=== PATIENT | female | born 1960 | race Caucasian/White ===

== ENCOUNTER 2020-01-23 15:02 | Inpatient (IN) | payer MEDICARE, MEDICAID ==
[2020-01-23 22:25] VITALS: BP 119/74
--- NOTE | 2020-01-24 06:48 | Psychiatric Evaluation ---
DATE OF SERVICE: PSYCHIATRIC INITIAL EVALUATION AND MENTAL STATUS EXAMINATION AGE: 59. SEX: Female. PHYSICIAN: Dr. Hollins CHIEF COMPLAINT: "They picked me up from the beach." HISTORY OF PRESENT ILLNESS: The patient is a 59-year-old female who was admitted to the hospital because of increased aggressive behavior and tried to hit staff according to the admission report. The patient has history of schizophrenia. The patient said that she never hit anybody and that she does not hit people. The patient added that she falls by herself and that is when they came and picked her up and she was sitting on a beach. She seems to be slightly confused, but calm. The patient said that she was never aggressive and she always stays by herself. She is saying that she lives alone in the city [facility]. The patient also is currently calm and staff reports that since she came to the hospital, she was calm. The patient has been taking Seroquel and Haldol as well as Ativan. PAST PSYCHIATRIC HISTORY: The patient has history of schizophrenia with multiple psychiatric hospitalizations. PAST MEDICAL HISTORY: The patient has history of epilepsy. FAMILY PSYCHIATRIC AND CHEMICAL DEPENDENCY HISTORY: The patient denies. CHEMICAL DEPENDENCY HISTORY: For the patient, the patient denies. SOCIAL HISTORY: The patient is single, never and has no children. She lives in [facility]. She denies any alcohol or drug use. She denies any legal issues. She denies any abuse issues. PAIN ASSESSMENT: The patient denies. WORK HISTORY: The patient said that she never worked. ALLERGIES: No known allergies. MENTAL STATUS EXAMINATION: The patient appears her stated age. Anxious. Cooperative. Thought processes are mainly goal directed. The patient seems to be delusional and responding at times. The patient also is paranoid. She denies any auditory or visual hallucinations. She denies any thoughts of suicide or homicide. The patient is alert and oriented to time and that she is in a hospital, but she did not know the name of the hospital and the situation that I am her doctor trying to evaluate her. Intact immediate memory and she remembered the events happened prior to her admission. Intact recent memory and she remembered the events happened 2 weeks ago. Intact remote memory and she remembered her date. Poor insight and she does not know why she is in the hospital. Poor judgment and she was trying to hit staff in the facility. Seems to be of average intelligence based on her verbal ability. Poor attention and concentration span. ASSESSMENT: PRIMARY DIAGNOSIS: Schizophrenic disorder, unspecified. MEDICAL DIAGNOSIS: Epilepsy. TREATMENT PLAN: We will monitor the patient's behavior and condition closely. The patient is taking 2 antipsychotic medications. We will discontinue Haldol. Also, we will continue Seroquel and we will increase the dose to 75 mg twice a day and 300 mg at bedtime. Also, continue Ativan on a p.r.n. basis. ESTIMATED LENGTH OF STAY: 5-7 days. PATIENT'S STRENGTHS AND WEAKNESSES: The patient seems to be in relatively fair health and she is currently cooperative with her treatment. Weaknesses is her impulse control and her paranoia. AFTER DISCHARGE PLAN: The patient will return to [facility] and outpatient treatment and followup will continue there. CRITERIA FOR DISCHARGE: The patient will not be agitated and will stabilize psychotropic medications and will establish outpatient treatment plans. JOB# [id number]
--- NOTE | 2020-01-24 10:58 | History & Physical ---
ADMIT DATE: HISTORY OF PRESENT ILLNESS: The patient is a 59-year-old female with long history of hypertension, hyperlipidemia, degenerative joint disease, dementia, admitted to [facility] under Dr. Hollins's service for evaluation and treatment. The patient denies chest pain, shortness of breath, nausea, vomiting, fever or chills. PAST MEDICAL HISTORY: Significant for hypertension, hyperlipidemia, degenerative joint disease, dementia, and mild psychosis. PAST SURGICAL HISTORY: No recent surgery. ALLERGIES: CHLORAL HYDRATE, CODEINE, PENICILLIN. SOCIAL HISTORY: Chronic smoker. No alcohol or drugs. FAMILY HISTORY: Noncontributory. MEDICATIONS: She is on Tenormin 50 mg daily, Lipitor 10 mg daily, Cogentin 1 mg daily, Colace 250 daily, and Motrin 400 mg q.6 hours for joint pain. FAMILY HISTORY: Noncontributory. REVIEW OF SYSTEMS: RENAL SYSTEM: No history of chronic renal disorder. CARDIOVASCULAR SYSTEM: She has history of essential hypertension. ENDOCRINE SYSTEM: No diabetes or thyroid problem. GASTROINTESTINAL SYSTEM: No upper or lower gastrointestinal bleed. NEUROLOGICAL SYSTEM: Seizure disorder. SKELETOMUSCULAR SYSTEM: No muscular dystrophy. She has degenerative joint disease. HEMATOLOGICAL SYSTEM: No bleeding tendencies. RESPIRATORY SYSTEM: She is a chronic smoker. GENITOURINARY: No dysuria or hematuria. PHYSICAL EXAMINATION: GENERAL: She is awake, alert, mildly confused. VITAL SIGNS: Temperature is 97.4, heart rate 64, and blood pressure 117/64. HEENT: Pupils are reacting, equal to light and accommodation. Sclerae clear. NECK: Supple. Negative for lymphadenopathy, JVD or bruit. CHEST: Air bilaterally normal. No rales, rhonchi or wheezing. HEART: S1 and S2 normal. No gallop rhythm. ABDOMEN: Soft, bowel sounds positive. EXTREMITIES: No edema. BACK: Normal vertebra. BREAST: Done by primary physician, no complaint. GENITAL: Done by primary physician, no complaint. RECTAL: Done by primary physician, no complaint. NEUROLOGIC: She is awake, alert, mildly confused. Cranial nerve #1, the patient is not able to perform the test. Cranial nerve #2, the patient is able to read printed page. Cranial nerve #3, the patient is able to move eyeball upward and outward. Cranial nerve #4: The patient is able to move eyeball inward and downward. Cranial nerve #5: The patient able to clench teeth, has normal sensation to forehead. Cranial nerve #6: The patient is able to move eyeball lateral on both sides. Cranial nerve #7: The patient is able to move eyebrow upwards on both sides. Cranial nerve #8: The patient is able to hear finger rubs on both sides. Cranial nerve #9: The patient has a normal gag reflex. Cranial #10: The patient is able to move soft palate upward on each side. Cranial nerve #11: The patient able to shrink shoulder on both sides. Cranial nerve #12: The patient able to stick tongue straight. Motor and sensory, gait normal. Romberg normal. Muscle tone normal. Deep tendon reflexes within normal, sensory normal. SKIN: Examination is intact. ASSESSMENT: 1. Hypertension. 2. Hyperlipidemia. 3. Degenerative joint disease. 4. Dementia. 5. Mild psychosis. PLAN: The patient admitted to the hospital under Dr. Hollins's service. Problems addressed during hospitalization is psychosis. Medical problem addressed at discharge are hypertension, hyperlipidemia. The patient is medically stable for activity. Thank you Dr. Hollins, for asking me to see your patient. The patient is a full code. The patient is going to resume her medication and diet. JOB# [id number]
[2020-01-24] MEDS: Atorvastatin Calcium 10 MG TAB PO SCH (20:48)
--- NOTE | 2020-01-25 06:58 | Progress Notes ---
DATE: 01/25/2020 SUBJECTIVE: Chart was reviewed and the patient interviewed. Also discussed the patient's condition with the staff and reviewed records and labs. "I want to rent a place in [place]." When asked her about what city in [place], she said "[place]." The patient is still confused and restless. She also is still guarded and withdrawn and she is still easily agitated. The patient also wants to be left alone. The patient on the other hand is compliant with taking her medications with no side effects of medications. Yesterday Seroquel was increased to 75 mg twice a day and 300 mg at bedtime and Haldol was stopped and she is only taking 1 psychotropic medication. She also continued to take Ativan 1 mg twice a day. The patient seems to be calmer and she is in less irritable mood and is easier to redirect her. The patient's gait is steady. Vital signs are stable and no new labs available for review. MENTAL STATUS EXAMINATION: Anxious. Cooperative. Thought processes mainly goal directed. The patient denies any hallucinations, but seems to be suspicious and paranoid. The patient currently denies any thoughts of suicide or homicide. She is alert and oriented to situation, but not to the place or person or date. ASSESSMENT: The patient is still psychotic and still needs close monitoring. TREATMENT PLAN: We will continue monitoring her behavior and her condition closely. Also, continue to work on both her ineffective coping and her irritability. Also, continue Depakote and Seroquel at current dose and continue to follow up closely. ESTIMATED LENGTH OF STAY: 3-5 days. REASON TO CONTINUE HOSPITAL STAY: The patient is still anxious and agitated and needs close monitoring. JOB# [id number]
--- NOTE | 2020-01-25 19:39 | Internal Medicine Prog Note ---
Internal Medicine Subjective - Subjective Service Date: 01/25/20 Patient seen and examined:: without staff (SHE FEELS BETTER) Patient is:: awake, verbal, in bed, talking, confused Per staff patient has:: no adverse event Internal Medicine Objective - Physical Exam Vitals and I&O: Vital Signs Temp 97.8 F 01/25/20 14:00 Pulse 66 01/25/20 14:00 Resp 20 01/25/20 14:00 BP 132/74 01/25/20 14:00 Pulse Ox 97 01/25/20 14:00 Intake & Output 01/25/20 01/25/20 01/26/20 06:59 18:59 06:59 Intake Total 120 900 Balance 120 900 Intake: Oral 120 900 Other: # Voids 1 3 # Bowel Movements 0 1 Active Medications: Current Medications Acetaminophen (Tylenol) 650 mg PO Q4H PRN PRN Reason: Pain (Mild 1-3) Stop: 03/24/20 01:30 Atenolol (Tenormin) 50 mg PO DAILY [facility] Stop: 03/24/20 08:59 Last Admin: 01/25/20 08:50 Dose: 50 mg Atorvastatin Calcium (Lipitor) 10 mg PO HS [facility]; Protocol Stop: 03/24/20 20:59 Last Admin: 01/24/20 20:48 Dose: Not Given Benztropine Mesylate (Cogentin) 1 mg PO BID [facility] Stop: 03/24/20 08:59 Last Admin: 01/25/20 16:09 Dose: 1 mg Docusate Sodium (Colace) 250 mg PO DAILY [facility] Stop: 03/24/20 08:59 Last Admin: 01/25/20 08:51 Dose: 250 mg Ibuprofen (Motrin) 400 mg PO Q6HR PRN PRN Reason: Pain (Moderate 4-6) Stop: 03/24/20 02:33 Lorazepam (Ativan) 0.5 mg PO Q4HR PRN; Protocol PRN Reason: Anxiety Stop: 02/23/20 01:51 Lorazepam (Ativan) 0.5 mg PO BID [facility]; Protocol Stop: 03/24/20 08:59 Last Admin: 01/25/20 16:10 Dose: 0.5 mg Quetiapine Fumarate (Seroquel) 300 mg PO HS [facility]; Protocol Stop: 03/24/20 20:59 Last Admin: 01/24/20 20:48 Dose: 300 mg Quetiapine Fumarate 50 mg/ (Quetiapine Fumarate 25 mg) 75 mg PO BID [facility] Stop: 03/24/20 09:59 Last Admin: 01/25/20 16:10 Dose: 75 mg Sodium Chloride (Nacl Tab) 1 gm PO TID [facility] Stop: 03/24/20 08:59 Last Admin: 01/25/20 13:33 Dose: 1 gm Zolpidem Tartrate (Ambien) 5 mg PO HS PRN PRN Reason: Insomnia Stop: 03/23/20 01:51 General: demented, thin HEENT: PERRLA, EOMI, anicteric sclerae, throat clear Neck: Supple, No JVD, No thyromegaly, +2 carotid pulse wo bruit, No LAD, + JVD Lungs: CTAB Cardiovascular: RRR, Normal S1, Normal S2 Abdomen: soft, non-tender, non-distended Extremities: clear Neurological: no change Internal Medicine Assmt/Plan - Assessment Assessment: 1.HTN 2.HYPERLIPIDEMIA. 3.DJD. 4.DEMENTIA - Plan Plan: CONTINUE ON CURRENT MEDICATION AND DIET Nutritional Asmnt/Malnutr-PDOC - Dietary Evaluation Malnutrition Findings (Please click <Entered> for more info): Nutritional Asmnt/Malnutrition Start: 01/25/20 13: 06 Text: Status: Active Freq: Protocol: Document 01/25/20 13:06 JORGE (Rec: 01/25/20 13:09 JORGE [id number]) Nutritional Asmnt/Malnutrition Patient General Information Nutritional Screening Moderate Risk Diagnosis Psychosis Pertinent Medical Hx/Surgical Hx Epilepsy, HTN, Hyperlipidemia, DJD, Dementia Subjective Information Pt is a 59-year-old female admitted on 01/22 d/t aggressive behavior. Pt is eating an estimated 100% of meals Per Meal/Nutrition Activity Record. Dietary is currently providing an estimated 1700 kcals and 70 gm Pro to meet 100+% kcal and 100+% Pro needs. Anthropometrics HT: 51 WT: 120 LB (54.55 kg) BMI: 22.81 (normal) GI/ Skin Integrity GI: WNL, Soft, Flat, Non- tender BM: 01/23 x1 I/O: 1320/Not Noted Skin: WNL, Intact Cali: 21 Diet Order: Cardiac, chopped Estimated Energy Needs: ( Geriatric, CBW) 0030-7663 kcals (25-30 kcals/ kg) 55-65g Pro (1.0-1.2 g/kg) 4383-8413 ml (25-30 ml/kg) Current Diet Order/ Nutrition Support Cardiac, Chopped Pertinent Medications Lipitor, Colace, NaCl Tab Pertinent Labs 01/22: Ca 8.1, Na 121, HDL 38, GFR 73 Nutritional Hx/Data Height 1.55 m Height (Calculated Centimeters) 154.9 Current Weight (lbs) 54.431 kg Weight (Calculated Kilograms) 54.4 Weight (Calculated Grams) 30669.1 [place] Body Weight 105 LB (47.73 kg) % [place] Body Weight 114 Body Mass Index (BMI) 22.6 Weight Status Approriate GI Symptoms GI Symptoms None Last BM 01/23 x1 Skin Integrity/Comment: Skin: WNL, Intact Cali: 21 Current %PO Good (75-100%) Estimated Nutritional Goals BEE in Kcals: Using Current wt Calories/Kcals/Kg 25-30 Kcals Calculated 1565-1387 Protein: Using Current wt Protein g/k.0-1.2 Protein Calculated 55-65 Fluid: ml 0654-6162 ml (25-30 ml/kg) Nutritional Problem No current Nutrition Prob Problem No nutrition diagnosis at this time. Etiology N/A Signs/Symptoms: N/A Malnutrition Related to Morbid Obesity Malnutrition related to morbid obesity No Intervention/Recommendation Comments Continue Cardiac, chopped diet as tolerated. Expected Outcomes/Goals Expected Outcomes/Goals 1.PO intake to continue to meet >75% of estimated nutritional needs. 2.Monitor PO intake, wt, nutrition related labs, and skin integrity. 3.F/U as low risk in 7-10 days , 01/31-02/03.
[2020-01-25] MEDS: Atorvastatin Calcium 10 MG TAB PO SCH (20:43)
--- NOTE | 2020-01-26 09:32 | Progress Notes ---
DATE: SUBJECTIVE: Chart was reviewed and the patient interviewed. Also discussed the patient's condition with the staff and reviewed records and labs. The patient continued to have mood swings and she is still anxious. The patient also is still slightly confused, but she is compliant and cooperative with her treatment. The patient also denies any suicidal or homicidal ideations, but she is still guarded and withdrawn. She still does not know why she was brought into the hospital, but at the same time, she is still slightly confused. The patient denies any side effects of medications. The patient's gait is steady. Vital signs are stable and no new labs available for review. MENTAL STATUS EXAMINATION: The patient is anxious, cooperative. Thought processes are circumstantial with flight of ideas. ASSESSMENT: The patient is still confused and still needs close monitoring. TREATMENT PLAN: We will continue monitoring her behavior and condition closely and we will continue to follow up. ESTIMATED LENGTH OF STAY: 2-4 days. REASON TO CONTINUE HOSPITAL STAY: The patient is still anxious and is still paranoid and confused. JOB# [id number]
--- NOTE | 2020-01-26 15:55 | Internal Medicine Prog Note ---
Internal Medicine Subjective - Subjective Service Date: 01/26/20 Patient seen and examined:: without staff (SHE FEES WELL) Patient is:: awake, verbal, in bed, talking, confused Per staff patient has:: no adverse event Internal Medicine Objective - Physical Exam Vitals and I&O: Vital Signs Temp 97.6 F 01/26/20 15:38 Pulse 67 01/26/20 15:38 Resp 20 01/26/20 15:38 BP 127/70 01/26/20 15:38 Pulse Ox 97 01/26/20 15:38 Intake & Output 01/25/20 01/26/20 01/26/20 18:59 06:59 18:59 Intake Total 1140 Balance 1140 Intake: Oral 1140 Other: # Voids 2 # Bowel Movements 0 Active Medications: Current Medications Acetaminophen (Tylenol) 650 mg PO Q4H PRN PRN Reason: Pain (Mild 1-3) Stop: 03/24/20 01:30 Atenolol (Tenormin) 50 mg PO DAILY [facility] Stop: 03/24/20 08:59 Last Admin: 01/26/20 08:42 Dose: 50 mg Atorvastatin Calcium (Lipitor) 10 mg PO [facility]; Protocol Stop: 03/24/20 20:59 Last Admin: 01/25/20 20:43 Dose: 10 mg Benztropine Mesylate (Cogentin) 1 mg PO BID [facility] Stop: 03/24/20 08:59 Last Admin: 01/26/20 08:42 Dose: 1 mg Docusate Sodium (Colace) 250 mg PO DAILY [facility] Stop: 03/24/20 08:59 Last Admin: 01/26/20 08:41 Dose: 250 mg Ibuprofen (Motrin) 400 mg PO Q6HR PRN PRN Reason: Pain (Moderate 4-6) Stop: 03/24/20 02:33 Lorazepam (Ativan) 0.5 mg PO Q4HR PRN; Protocol PRN Reason: Anxiety Stop: 02/23/20 01:51 Last Admin: 01/26/20 08:47 Dose: 0.5 mg Lorazepam (Ativan) 0.5 mg PO BID [facility]; Protocol Stop: 03/24/20 08:59 Last Admin: 01/26/20 08:48 Dose: 0.5 mg Quetiapine Fumarate (Seroquel) 300 mg PO HS [facility]; Protocol Stop: 03/24/20 20:59 Last Admin: 01/25/20 20:44 Dose: 300 mg Quetiapine Fumarate 50 mg/ (Quetiapine Fumarate 25 mg) 75 mg PO BID [facility] Stop: 03/24/20 09:59 Last Admin: 01/26/20 08:41 Dose: 75 mg Sodium Chloride (Nacl Tab) 1 gm PO TID [facility] Stop: 03/24/20 08:59 Last Admin: 01/26/20 14:34 Dose: 1 gm Zolpidem Tartrate (Ambien) 5 mg PO HS PRN PRN Reason: Insomnia Stop: 03/23/20 01:51 General: demented, thin HEENT: PERRLA, EOMI, anicteric sclerae, throat clear Neck: Supple, No JVD, No thyromegaly, +2 carotid pulse wo bruit, No LAD, + JVD Lungs: CTAB Cardiovascular: RRR, Normal S1, Normal S2 Abdomen: soft, non-tender, non-distended Extremities: clear Neurological: no change Internal Medicine Assmt/Plan - Assessment Assessment: 1.HTN 2.HYPERLIPIDEMIA. 3.DJD. 4.DEMENTIA - Plan Plan: CONTINUE ON CURRENT MEDICATION AND DIET Nutritional Asmnt/Malnutr-PDOC - Dietary Evaluation Malnutrition Findings (Please click <Entered> for more info): Nutritional Asmnt/Malnutrition Start: 01/25/20 13: 06 Text: Status: Active Freq: Protocol: Document 01/25/20 13:06 JORGE (Rec: 01/25/20 13:09 JORGE [id number]) Nutritional Asmnt/Malnutrition Patient General Information Nutritional Screening Moderate Risk Diagnosis Psychosis Pertinent Medical Hx/Surgical Hx Epilepsy, HTN, Hyperlipidemia, DJD, Dementia Subjective Information Pt is a 59-year-old female admitted on 01/22 d/t aggressive behavior. Pt is eating an estimated 100% of meals Per Meal/Nutrition Activity Record. Dietary is currently providing an estimated 1700 kcals and 70 gm Pro to meet 100+% kcal and 100+% Pro needs. Anthropometrics HT: 51 WT: 120 LB (54.55 kg) BMI: 22.81 (normal) GI/ Skin Integrity GI: WNL, Soft, Flat, Non- tender BM: 01/23 x1 I/O: 1320/Not Noted Skin: WNL, Intact Cali: 21 Diet Order: Cardiac, chopped Estimated Energy Needs: ( Geriatric, CBW) 4722-9105 kcals (25-30 kcals/ kg) 55-65g Pro (1.0-1.2 g/kg) 9817-2631 ml (25-30 ml/kg) Current Diet Order/ Nutrition Support Cardiac, Chopped Pertinent Medications Lipitor, Colace, NaCl Tab Pertinent Labs 01/22: Ca 8.1, Na 121, HDL 38, GFR 73 Nutritional Hx/Data Height 1.55 m Height (Calculated Centimeters) 154.9 Current Weight (lbs) 54.431 kg Weight (Calculated Kilograms) 54.4 Weight (Calculated Grams) 04735.1 [place] Body Weight 105 LB (47.73 kg) % [place] Body Weight 114 Body Mass Index (BMI) 22.6 Weight Status Approriate GI Symptoms GI Symptoms None Last BM 01/23 x1 Skin Integrity/Comment: Skin: WNL, Intact Cali: 21 Current %PO Good (75-100%) Estimated Nutritional Goals BEE in Kcals: Using Current wt Calories/Kcals/Kg 25-30 Kcals Calculated 9599-6312 Protein: Using Current wt Protein g/k.0-1.2 Protein Calculated 55-65 Fluid: ml 9715-8002 ml (25-30 ml/kg) Nutritional Problem No current Nutrition Prob Problem No nutrition diagnosis at this time. Etiology N/A Signs/Symptoms: N/A Malnutrition Related to Morbid Obesity Malnutrition related to morbid obesity No Intervention/Recommendation Comments Continue Cardiac, chopped diet as tolerated. Expected Outcomes/Goals Expected Outcomes/Goals 1.PO intake to continue to meet >75% of estimated nutritional needs. 2.Monitor PO intake, wt, nutrition related labs, and skin integrity. 3.F/U as low risk in 7-10 days , 01/31-02/03.
[2020-01-26] MEDS: Atorvastatin Calcium 10 MG TAB PO SCH (20:49)
--- NOTE | 2020-01-27 16:35 | General Progress Note ---
Subjective - Review of Systems Service Date: 01/27/20 Subjective: resting comfortably no distress Objective - Physical Exam Vitals and I&O: Vital Signs Temp 97.2 F 01/27/20 05:55 Pulse 65 01/27/20 08:35 Resp 17 01/27/20 08:00 BP 111/53 01/27/20 08:35 Pulse Ox 96 01/27/20 05:55 Intake & Output 01/26/20 01/27/20 01/27/20 18:59 06:59 18:59 Intake Total 900 240 Balance 900 240 Intake: Oral 900 240 Other: # Voids 3 1 # Bowel Movements 1 0 Active Medications: Current Medications Acetaminophen (Tylenol) 650 mg PO Q4H PRN PRN Reason: Pain (Mild 1-3) Stop: 03/24/20 01:30 Atenolol (Tenormin) 50 mg PO DAILY [facility] Stop: 03/24/20 08:59 Last Admin: 01/27/20 08:35 Dose: Not Given Atorvastatin Calcium (Lipitor) 10 mg PO [facility]; Protocol Stop: 03/24/20 20:59 Last Admin: 01/26/20 20:49 Dose: 10 mg Benztropine Mesylate (Cogentin) 1 mg PO BID [facility] Stop: 03/24/20 08:59 Last Admin: 01/27/20 16:13 Dose: 1 mg Docusate Sodium (Colace) 250 mg PO DAILY [facility] Stop: 03/24/20 08:59 Last Admin: 01/27/20 08:38 Dose: 250 mg Ibuprofen (Motrin) 400 mg PO Q6HR PRN PRN Reason: Pain (Moderate 4-6) Stop: 03/24/20 02:33 Lorazepam (Ativan) 0.5 mg PO Q4HR PRN; Protocol PRN Reason: Anxiety Stop: 02/23/20 01:51 Last Admin: 01/26/20 08:47 Dose: 0.5 mg Lorazepam (Ativan) 0.5 mg PO BID [facility]; Protocol Stop: 03/24/20 08:59 Last Admin: 01/27/20 16:13 Dose: 0.5 mg Quetiapine Fumarate (Seroquel) 300 mg PO HS [facility]; Protocol Stop: 03/24/20 20:59 Last Admin: 01/26/20 20:49 Dose: 300 mg Quetiapine Fumarate 50 mg/ (Quetiapine Fumarate 25 mg) 75 mg PO BID [facility] Stop: 03/24/20 09:59 Last Admin: 01/27/20 16:13 Dose: 75 mg Sodium Chloride (Nacl Tab) 1 gm PO TID [facility] Stop: 03/24/20 08:59 Last Admin: 01/27/20 14:20 Dose: 1 gm Zolpidem Tartrate (Ambien) 5 mg PO HS PRN PRN Reason: Insomnia Stop: 03/23/20 01:51 General: No acute distress HEENT: Atraumatic, PERRLA Neck: Supple, JVD Cardiovascular: Regular rate, Normal S1, Normal S2 Lungs: Clear to auscultation Abdomen: Bowel sounds, Soft Assessment/Plan - Assessment Assessment: 1.HTN 2.HYPERLIPIDEMIA. 3.DJD. 4.DEMENTIA - Plan Plan: continue current treatment Nutritional Asmnt/Malnutr-PDOC - Dietary Evaluation Malnutrition Findings (Please click <Entered> for more info): Nutritional Asmnt/Malnutrition Start: 01/25/20 13: 06 Text: Status: Active Freq: Protocol: Document 01/25/20 13:06 JORGE (Rec: 01/25/20 13:09 JORGE [id number]) Nutritional Asmnt/Malnutrition Patient General Information Nutritional Screening Moderate Risk Diagnosis Psychosis Pertinent Medical Hx/Surgical Hx Epilepsy, HTN, Hyperlipidemia, DJD, Dementia Subjective Information Pt is a 59-year-old female admitted on 01/22 d/t aggressive behavior. Pt is eating an estimated 100% of meals Per Meal/Nutrition Activity Record. Dietary is currently providing an estimated 1700 kcals and 70 gm Pro to meet 100+% kcal and 100+% Pro needs. Anthropometrics HT: 51 WT: 120 LB (54.55 kg) BMI: 22.81 (normal) GI/ Skin Integrity GI: WNL, Soft, Flat, Non- tender BM: 01/23 x1 I/O: 1320/Not Noted Skin: WNL, Intact Cali: 21 Diet Order: Cardiac, chopped Estimated Energy Needs: ( Geriatric, CBW) 0901-9071 kcals (25-30 kcals/ kg) 55-65g Pro (1.0-1.2 g/kg) 8341-6577 ml (25-30 ml/kg) Current Diet Order/ Nutrition Support Cardiac, Chopped Pertinent Medications Lipitor, Colace, NaCl Tab Pertinent Labs 01/22: Ca 8.1, Na 121, HDL 38, GFR 73 Nutritional Hx/Data Height 1.55 m Height (Calculated Centimeters) 154.9 Current Weight (lbs) 54.431 kg Weight (Calculated Kilograms) 54.4 Weight (Calculated Grams) 87694.1 [place] Body Weight 105 LB (47.73 kg) % [place] Body Weight 114 Body Mass Index (BMI) 22.6 Weight Status Approriate GI Symptoms GI Symptoms None Last BM 01/23 x1 Skin Integrity/Comment: Skin: WNL, Intact Cali: 21 Current %PO Good (75-100%) Estimated Nutritional Goals BEE in Kcals: Using Current wt Calories/Kcals/Kg 25-30 Kcals Calculated 5983-5300 Protein: Using Current wt Protein g/k.0-1.2 Protein Calculated 55-65 Fluid: ml 8512-6502 ml (25-30 ml/kg) Nutritional Problem No current Nutrition Prob Problem No nutrition diagnosis at this time. Etiology N/A Signs/Symptoms: N/A Malnutrition Related to Morbid Obesity Malnutrition related to morbid obesity No Intervention/Recommendation Comments Continue Cardiac, chopped diet as tolerated. Expected Outcomes/Goals Expected Outcomes/Goals 1.PO intake to continue to meet >75% of estimated nutritional needs. 2.Monitor PO intake, wt, nutrition related labs, and skin integrity. 3.F/U as low risk in 7-10 days , 01/31-02/03.
[2020-01-27] MEDS: Atorvastatin Calcium 10 MG TAB PO SCH (20:38)
--- NOTE | 2020-01-27 23:17 | Progress Notes ---
DATE: 01/27/[address] Hollins. SUBJECTIVE: The patient's case was discussed with staff. Chart and records were reviewed. The patient per nursing report has been restless, withdrawn, isolating herself. The patient was visited bedside this afternoon. The patient is quite guarded, appears to be depressed, isolating, is selectively mute during the interview. Response to her name, but does not cooperate at all. There appears to be no side effects to the medications that the patient is unwilling to really engage much more than this. MENTAL STATUS EXAMINATION: The patient is an elderly female, lying in the hospital bed. She is uncooperative with the interview, selectively mute, poor insight, judgment and impulse control. Otherwise unable to assess. ASSESSMENT AND PLAN: The patient is a 59-year-old female, admitted to [facility] due to increasing aggressive behavior and trying to hit staff at her previous facility with apparently a history of schizophrenia. The patient at this time continues to be depressed, withdrawn, having mood swings, poorly cooperative with the interview, but appears to be having a less agitation episode. No side effects noted to the medication. PLAN: We will continue the patient's acute hospitalization. We will continue medications as prescribed. We will encourage the patient to verbalize needs and participate in group and milieu therapy. JOB# [id number]
--- NOTE | 2020-01-28 06:41 | Progress Notes ---
DATE: 01/28/2020 SUBJECTIVE: The patient seen, chart reviewed, discussed with staff. The patient is restless, noted to be withdrawn, pacing back and forth per staff, isolative. She does not want to talk to me, irritable and tells me to come back later it is too early. Not really cooperative with the interview today unfortunately, per nursing staff the patient in her room, oriented to self and place, verbally responsive, quiet, sad, depressed, withdrawn, not really going to groups, mostly keeping to self. The patient at one point was believing that the ambulance was going to pick her up from the hospital. Medications were reviewed. Labs were reviewed. Vitals were reviewed. Blood pressure 111/53, pulse of 65. She is on dosing of Seroquel. MENTAL STATUS EXAMINATION: Stated age. Fair eye contact, irritable, sleeping, but arousable, not really wanting to engage with me, uncooperative. A 59-year-old female coming into the hospital, aggressive behaviors, trying to hit staff, could not be controlled at a lower level of care. Somewhat less agitated. No side effects noted to medications, but hard to fully assess. PLAN: We will continue hospitalization and titrate and adjust medications. Work on the patient's coping, anger, debility. JOB# [id number]
--- NOTE | 2020-01-28 16:08 | General Progress Note ---
Subjective - Review of Systems Service Date: 01/28/20 Subjective: resting comfortably no distress Objective - Physical Exam Vitals and I&O: Vital Signs Temp 97.8 F 01/28/20 14:00 Pulse 73 01/28/20 14:00 Resp 18 01/28/20 14:00 BP 130/74 01/28/20 14:00 Pulse Ox 95 01/28/20 14:00 Intake & Output 01/27/20 01/28/20 01/28/20 18:59 06:59 18:59 Intake Total 1200 360 700 Balance 1200 360 700 Intake: Oral 1200 360 700 Other: # Voids 4 1 # Bowel Movements 1 0 1 Active Medications: Current Medications Acetaminophen (Tylenol) 650 mg PO Q4H PRN PRN Reason: Pain (Mild 1-3) Stop: 03/24/20 01:30 Atenolol (Tenormin) 50 mg PO DAILY [facility] Stop: 03/24/20 08:59 Last Admin: 01/28/20 09:11 Dose: 50 mg Atorvastatin Calcium (Lipitor) 10 mg PO [facility]; Protocol Stop: 03/24/20 20:59 Last Admin: 01/27/20 20:38 Dose: 10 mg Benztropine Mesylate (Cogentin) 1 mg PO BID [facility] Stop: 03/24/20 08:59 Last Admin: 01/28/20 09:11 Dose: 1 mg Docusate Sodium (Colace) 250 mg PO DAILY [facility] Stop: 03/24/20 08:59 Last Admin: 01/28/20 09:11 Dose: 250 mg Ibuprofen (Motrin) 400 mg PO Q6HR PRN PRN Reason: Pain (Moderate 4-6) Stop: 03/24/20 02:33 Last Admin: 01/28/20 12:44 Dose: 400 mg Lorazepam (Ativan) 0.5 mg PO Q4HR PRN; Protocol PRN Reason: Anxiety Stop: 02/23/20 01:51 Last Admin: 01/26/20 08:47 Dose: 0.5 mg Lorazepam (Ativan) 0.5 mg PO BID [facility]; Protocol Stop: 03/24/20 08:59 Last Admin: 01/28/20 09:11 Dose: 0.5 mg Quetiapine Fumarate (Seroquel) 300 mg PO [facility]; Protocol Stop: 03/24/20 20:59 Last Admin: 01/27/20 20:38 Dose: 300 mg Quetiapine Fumarate 50 mg/ (Quetiapine Fumarate 25 mg) 75 mg PO BID [facility] Stop: 03/24/20 09:59 Last Admin: 01/28/20 09:12 Dose: 75 mg Sodium Chloride (Nacl Tab) 1 gm PO TID [facility] Stop: 03/24/20 08:59 Last Admin: 01/28/20 13:18 Dose: 1 gm Zolpidem Tartrate (Ambien) 5 mg PO HS PRN PRN Reason: Insomnia Stop: 03/23/20 01:51 General: No acute distress HEENT: Atraumatic, PERRLA Neck: Supple, JVD Cardiovascular: Regular rate, Normal S1, Normal S2 Lungs: Clear to auscultation Abdomen: Bowel sounds, Soft Assessment/Plan - Assessment Assessment: 1.HTN 2.HYPERLIPIDEMIA. 3.DJD. 4.DEMENTIA - Plan Plan: continue current treatment Nutritional Asmnt/Malnutr-PDOC - Dietary Evaluation Malnutrition Findings (Please click <Entered> for more info): Nutritional Asmnt/Malnutrition Start: 01/25/20 13: 06 Text: Status: Active Freq: Protocol: Document 01/25/20 13:06 JORGE (Rec: 01/25/20 13:09 JORGE [id number] [id number]) Nutritional Asmnt/Malnutrition Patient General Information Nutritional Screening Moderate Risk Diagnosis Psychosis Pertinent Medical Hx/Surgical Hx Epilepsy, HTN, Hyperlipidemia, DJD, Dementia Subjective Information Pt is a 59-year-old female admitted on 01/22 d/t aggressive behavior. Pt is eating an estimated 100% of meals Per Meal/Nutrition Activity Record. Dietary is currently providing an estimated 1700 kcals and 70 gm Pro to meet 100+% kcal and 100+% Pro needs. Anthropometrics HT: 51 WT: 120 LB (54.55 kg) BMI: 22.81 (normal) GI/ Skin Integrity GI: WNL, Soft, Flat, Non- tender BM: 01/23 x1 I/O: 1320/Not Noted Skin: WNL, Intact Cali: 21 Diet Order: Cardiac, chopped Estimated Energy Needs: ( Geriatric, CBW) 5225-4375 kcals (25-30 kcals/ kg) 55-65g Pro (1.0-1.2 g/kg) 1732-0639 ml (25-30 ml/kg) Current Diet Order/ Nutrition Support Cardiac, Chopped Pertinent Medications Lipitor, Colace, NaCl Tab Pertinent Labs 01/22: Ca 8.1, Na 121, HDL 38, GFR 73 Nutritional Hx/Data Height 1.55 m Height (Calculated Centimeters) 154.9 Current Weight (lbs) 54.431 kg Weight (Calculated Kilograms) 54.4 Weight (Calculated Grams) 96622.1 [place] Body Weight 105 LB (47.73 kg) % [place] Body Weight 114 Body Mass Index (BMI) 22.6 Weight Status Approriate GI Symptoms GI Symptoms None Last BM 01/23 x1 Skin Integrity/Comment: Skin: WNL, Intact Cali: 21 Current %PO Good (75-100%) Estimated Nutritional Goals BEE in Kcals: Using Current wt Calories/Kcals/Kg 25-30 Kcals Calculated 0230-0650 Protein: Using Current wt Protein g/k.0-1.2 Protein Calculated 55-65 Fluid: ml 9973-4849 ml (25-30 ml/kg) Nutritional Problem No current Nutrition Prob Problem No nutrition diagnosis at this time. Etiology N/A Signs/Symptoms: N/A Malnutrition Related to Morbid Obesity Malnutrition related to morbid obesity No Intervention/Recommendation Comments Continue Cardiac, chopped diet as tolerated. Expected Outcomes/Goals Expected Outcomes/Goals 1.PO intake to continue to meet >75% of estimated nutritional needs. 2.Monitor PO intake, wt, nutrition related labs, and skin integrity. 3.F/U as low risk in 7-10 days , 01/31-02/03.
[2020-01-28] MEDS: Atorvastatin Calcium 10 MG TAB PO SCH (21:17)
--- NOTE | 2020-01-29 07:58 | Progress Notes ---
DATE: 01/29/2020 SUBJECTIVE: Chart was reviewed and the patient interviewed. Also discussed the patient's condition with the staff and reviewed records and labs. The patient seems to be calmer. She is less irritable and less agitated. She is also interacting more. Also, decreased mood swings and decreased behavioral problems The patient's vital signs are stable and no new labs available for review. MENTAL STATUS EXAMINATION: Calm. Withdrawn. Sad affect. Depressed mood. ASSESSMENT: The patient is still depressed, but not agitated and decreased behavioral issues. TREATMENT PLAN: Continue to monitor her behavior and her condition closely. Also, continue current dose of Seroquel, Depakote and Klonopin ESTIMATED LENGTH OF STAY: 1-3 days. REASON FOR CONTINUED HOSPITAL STAY: The patient is still agitated and still needs close monitoring. JOB# [id number]
--- NOTE | 2020-01-29 19:01 | Internal Medicine Prog Note ---
Internal Medicine Subjective - Subjective Service Date: 01/29/20 Patient seen and examined:: without staff (SHE FEELS WELL) Patient is:: awake, verbal, in bed, talking, confused Per staff patient has:: no adverse event Internal Medicine Objective - Physical Exam Vitals and I&O: Vital Signs Temp 98.1 F 01/29/20 14:00 Pulse 73 01/29/20 14:00 Resp 20 01/29/20 14:00 BP 144/84 01/29/20 14:00 Pulse Ox 95 01/29/20 14:00 Intake & Output 01/29/20 01/29/20 01/30/20 06:59 18:59 06:59 Intake Total 300 1820 Balance 300 1820 Intake: Oral 300 1080 Other 740 Other: # Voids 1 5 # Bowel Movements 1 1 Active Medications: Current Medications Acetaminophen (Tylenol) 650 mg PO Q4H PRN PRN Reason: Pain (Mild 1-3) Stop: 03/24/20 01:30 Atenolol (Tenormin) 50 mg PO DAILY [facility] Stop: 03/24/20 08:59 Last Admin: 01/29/20 08:21 Dose: 50 mg Atorvastatin Calcium (Lipitor) 10 mg PO HS [facility]; Protocol Stop: 03/24/20 20:59 Last Admin: 01/28/20 21:17 Dose: 10 mg Benztropine Mesylate (Cogentin) 1 mg PO BID [facility] Stop: 03/24/20 08:59 Last Admin: 01/29/20 16:53 Dose: 1 mg Docusate Sodium (Colace) 250 mg PO DAILY [facility] Stop: 03/24/20 08:59 Last Admin: 01/29/20 08:20 Dose: 250 mg Ibuprofen (Motrin) 400 mg PO Q6HR PRN PRN Reason: Pain (Moderate 4-6) Stop: 03/24/20 02:33 Last Admin: 01/28/20 12:44 Dose: 400 mg Lorazepam (Ativan) 0.5 mg PO Q4HR PRN; Protocol PRN Reason: Anxiety Stop: 02/23/20 01:51 Last Admin: 01/26/20 08:47 Dose: 0.5 mg Lorazepam (Ativan) 0.5 mg PO BID [facility]; Protocol Stop: 03/24/20 08:59 Last Admin: 01/29/20 16:53 Dose: 0.5 mg Quetiapine Fumarate (Seroquel) 300 mg PO HS [facility]; Protocol Stop: 03/24/20 20:59 Last Admin: 01/28/20 21:18 Dose: Not Given Quetiapine Fumarate 50 mg/ (Quetiapine Fumarate 25 mg) 75 mg PO BID [facility] Stop: 03/24/20 09:59 Last Admin: 01/29/20 16:53 Dose: 75 mg Sodium Chloride (Nacl Tab) 1 gm PO TID [facility] Stop: 03/24/20 08:59 Last Admin: 01/29/20 14:39 Dose: 1 gm Zolpidem Tartrate (Ambien) 5 mg PO HS PRN PRN Reason: Insomnia Stop: 03/23/20 01:51 General: demented, thin HEENT: PERRLA, EOMI, anicteric sclerae, throat clear Neck: Supple, No JVD, No thyromegaly, +2 carotid pulse wo bruit, No LAD, + JVD Lungs: CTAB Cardiovascular: RRR, Normal S1, Normal S2 Abdomen: soft, non-tender, non-distended Extremities: clear Neurological: no change Internal Medicine Assmt/Plan - Assessment Assessment: 1.HTN 2.HYPERLIPIDEMIA. 3.DJD. 4.DEMENTIA - Plan Plan: CONTINUE ON CURRENT MEDICATION AND DIET Nutritional Asmnt/Malnutr-PDOC - Dietary Evaluation Malnutrition Findings (Please click <Entered> for more info): Nutritional Asmnt/Malnutrition Start: 01/25/20 13: 06 Text: Status: Active Freq: Protocol: Document 01/25/20 13:06 JORGE (Rec: 01/25/20 13:09 JORGE [email or web address] [id number]) Nutritional Asmnt/Malnutrition Patient General Information Nutritional Screening Moderate Risk Diagnosis Psychosis Pertinent Medical Hx/Surgical Hx Epilepsy, HTN, Hyperlipidemia, DJD, Dementia Subjective Information Pt is a 59-year-old female admitted on 01/22 d/t aggressive behavior. Pt is eating an estimated 100% of meals Per Meal/Nutrition Activity Record. Dietary is currently providing an estimated 1700 kcals and 70 gm Pro to meet 100+% kcal and 100+% Pro needs. Anthropometrics HT: 51 WT: 120 LB (54.55 kg) BMI: 22.81 (normal) GI/ Skin Integrity GI: WNL, Soft, Flat, Non- tender BM: 01/23 x1 I/O: 1320/Not Noted Skin: WNL, Intact Cali: 21 Diet Order: Cardiac, chopped Estimated Energy Needs: ( Geriatric, CBW) 3335-7082 kcals (25-30 kcals/ kg) 55-65g Pro (1.0-1.2 g/kg) 9927-6216 ml (25-30 ml/kg) Current Diet Order/ Nutrition Support Cardiac, Chopped Pertinent Medications Lipitor, Colace, NaCl Tab Pertinent Labs 01/22: Ca 8.1, Na 121, HDL 38, GFR 73 Nutritional Hx/Data Height 1.55 m Height (Calculated Centimeters) 154.9 Current Weight (lbs) 54.431 kg Weight (Calculated Kilograms) 54.4 Weight (Calculated Grams) 07004.1 [place] Body Weight 105 LB (47.73 kg) % [place] Body Weight 114 Body Mass Index (BMI) 22.6 Weight Status Approriate GI Symptoms GI Symptoms None Last BM 01/23 x1 Skin Integrity/Comment: Skin: WNL, Intact Cali: 21 Current %PO Good (75-100%) Estimated Nutritional Goals BEE in Kcals: Using Current wt Calories/Kcals/Kg 25-30 Kcals Calculated 1966-9321 Protein: Using Current wt Protein g/k.0-1.2 Protein Calculated 55-65 Fluid: ml 0543-5222 ml (25-30 ml/kg) Nutritional Problem No current Nutrition Prob Problem No nutrition diagnosis at this time. Etiology N/A Signs/Symptoms: N/A Malnutrition Related to Morbid Obesity Malnutrition related to morbid obesity No Intervention/Recommendation Comments Continue Cardiac, chopped diet as tolerated. Expected Outcomes/Goals Expected Outcomes/Goals 1.PO intake to continue to meet >75% of estimated nutritional needs. 2.Monitor PO intake, wt, nutrition related labs, and skin integrity. 3.F/U as low risk in 7-10 days , 01/31-02/03.
[2020-01-29] MEDS: Atorvastatin Calcium 10 MG TAB PO SCH (21:17)
--- NOTE | 2020-01-30 08:02 | Discharge Summary ---
DATE OF DISCHARGE: 01/30/2020 AGE: 59. SEX: Female. PHYSICIAN: Dr. Hollins. FINAL DIAGNOSIS AND PRIMARY DIAGNOSIS: Schizophrenic disorder, unspecified. MEDICAL DIAGNOSIS: Epilepsy. REASON FOR HOSPITALIZATION: The patient is a 59-year-old female who was admitted from [facility] because the patient was aggressive and agitated with the staff and peers and was not able to follow directions and she was slightly confused. HOSPITAL COURSE: The patient continued to be slightly confused, but was less irritable and less agitated. The patient was given Seroquel and the dose adjusted to 75 mg twice a day and 300 mg at bedtime. That helped the patient's agitation and irritability and the patient was calmer. The patient also was given Cogentin 1 mg twice a day for any possible side effects. The patient's affect was brighter. The patient was calmer and was easier to follow directions. Physical exam of the patient was basically as mentioned under axis III, the patient also had hypertension and she was given atenolol. Blood workup was also monitored closely by Dr. Alegre and was basically within normal. DISCHARGE ACTIVITY: No restrictions. DISCHARGE DIET: Regular. EXPECTED OUTCOME AFTER DISCHARGE: Fair if the patient continued to take her psychotropic medications and follow up with discharge plans. [facility]# [id number]
[2020-01-30] MEDS: Benztropine 1 MG TAB PO SCH (17:00)
--- NOTE | 2020-01-30 21:22 | Internal Medicine Prog Note ---
Internal Medicine Subjective - Subjective Service Date: 01/30/20 Patient seen and examined:: without staff (SHE FEELS WELL) Patient is:: awake, verbal, in bed, talking, confused Per staff patient has:: no adverse event Internal Medicine Objective - Physical Exam Vitals and I&O: Vital Signs Temp 98.1 F 01/30/20 19:50 Pulse 71 01/30/20 19:50 Resp 20 01/30/20 19:50 BP 109/61 01/30/20 19:50 Pulse Ox 94 01/30/20 19:50 Intake & Output 01/30/20 01/30/20 01/31/20 06:59 18:59 06:59 Intake Total 360 1500 120 Balance 360 1500 120 Intake: Oral 360 1500 120 Other: # Voids 1 3 2 # Bowel Movements 0 0 0 Active Medications: Current Medications Acetaminophen (Tylenol) 650 mg PO Q4H PRN PRN Reason: Pain (Mild 1-3) Stop: 03/24/20 01:30 Atenolol (Tenormin) 50 mg PO DAILY [facility] Stop: 03/24/20 08:59 Last Admin: 01/30/20 08:21 Dose: 50 mg Atorvastatin Calcium (Lipitor) 10 mg PO HS [facility]; Protocol Stop: 03/24/20 20:59 Last Admin: 01/29/20 21:17 Dose: 10 mg Benztropine Mesylate (Cogentin) 1 mg PO BID [facility] Stop: 03/24/20 08:59 Last Admin: 01/30/20 17:00 Dose: 1 mg Docusate Sodium (Colace) 250 mg PO DAILY [facility] Stop: 03/24/20 08:59 Last Admin: 01/30/20 08:20 Dose: 250 mg Ibuprofen (Motrin) 400 mg PO Q6HR PRN PRN Reason: Pain (Moderate 4-6) Stop: 03/24/20 02:33 Last Admin: 01/28/20 12:44 Dose: 400 mg Lorazepam (Ativan) 0.5 mg PO Q4HR PRN; Protocol PRN Reason: Anxiety Stop: 02/23/20 01:51 Last Admin: 01/26/20 08:47 Dose: 0.5 mg Lorazepam (Ativan) 0.5 mg PO BID [facility]; Protocol Stop: 03/24/20 08:59 Last Admin: 01/30/20 17:00 Dose: 0.5 mg Quetiapine Fumarate (Seroquel) 300 mg PO HS [facility]; Protocol Stop: 03/24/20 20:59 Last Admin: 01/29/20 21:17 Dose: 300 mg Quetiapine Fumarate 50 mg/ (Quetiapine Fumarate 25 mg) 75 mg PO BID [facility] Stop: 03/24/20 09:59 Last Admin: 01/30/20 17:01 Dose: 75 mg Sodium Chloride (Nacl Tab) 1 gm PO TID [facility] Stop: 03/24/20 08:59 Last Admin: 01/30/20 13:06 Dose: 1 gm General: demented, thin HEENT: PERRLA, EOMI, anicteric sclerae, throat clear Neck: Supple, No JVD, No thyromegaly, +2 carotid pulse wo bruit, No LAD, + JVD Lungs: CTAB Cardiovascular: RRR, Normal S1, Normal S2 Abdomen: soft, non-tender, non-distended Extremities: clear Neurological: no change Internal Medicine Assmt/Plan - Assessment Assessment: 1.HTN 2.HYPERLIPIDEMIA. 3.DJD. 4.DEMENTIA - Plan Plan: CONTINUE ON CURRENT MEDICATION AND DIET Nutritional Asmnt/Malnutr-PDOC - Dietary Evaluation Malnutrition Findings (Please click <Entered> for more info): Nutritional Asmnt/Malnutrition Start: 01/25/20 13: 06 Text: Status: Active Freq: Protocol: Document 01/25/20 13:06 JORGE (Rec: 01/25/20 13:09 JORGE [id number] [id number]) Nutritional Asmnt/Malnutrition Patient General Information Nutritional Screening Moderate Risk Diagnosis Psychosis Pertinent Medical Hx/Surgical Hx Epilepsy, HTN, Hyperlipidemia, DJD, Dementia Subjective Information Pt is a 59-year-old female admitted on 01/22 d/t aggressive behavior. Pt is eating an estimated 100% of meals Per Meal/Nutrition Activity Record. Dietary is currently providing an estimated 1700 kcals and 70 gm Pro to meet 100+% kcal and 100+% Pro needs. Anthropometrics HT: 51 WT: 120 LB (54.55 kg) BMI: 22.81 (normal) GI/ Skin Integrity GI: WNL, Soft, Flat, Non- tender BM: 01/23 x1 I/O: 1320/Not Noted Skin: WNL, Intact Cali: 21 Diet Order: Cardiac, chopped Estimated Energy Needs: ( Geriatric, CBW) 4547-8022 kcals (25-30 kcals/ kg) 55-65g Pro (1.0-1.2 g/kg) 4501-0455 ml (25-30 ml/kg) Current Diet Order/ Nutrition Support Cardiac, Chopped Pertinent Medications Lipitor, Colace, NaCl Tab Pertinent Labs 01/22: Ca 8.1, Na 121, HDL 38, GFR 73 Nutritional Hx/Data Height 1.55 m Height (Calculated Centimeters) 154.9 Current Weight (lbs) 54.431 kg Weight (Calculated Kilograms) 54.4 Weight (Calculated Grams) 08726.1 [place] Body Weight 105 LB (47.73 kg) % [place] Body Weight 114 Body Mass Index (BMI) 22.6 Weight Status Approriate GI Symptoms GI Symptoms None Last BM 01/23 x1 Skin Integrity/Comment: Skin: WNL, Intact Cali: 21 Current %PO Good (75-100%) Estimated Nutritional Goals BEE in Kcals: Using Current wt Calories/Kcals/Kg 25-30 Kcals Calculated 4793-9414 Protein: Using Current wt Protein g/k.0-1.2 Protein Calculated 55-65 Fluid: ml 5491-8679 ml (25-30 ml/kg) Nutritional Problem No current Nutrition Prob Problem No nutrition diagnosis at this time. Etiology N/A Signs/Symptoms: N/A Malnutrition Related to Morbid Obesity Malnutrition related to morbid obesity No Intervention/Recommendation Comments Continue Cardiac, chopped diet as tolerated. Expected Outcomes/Goals Expected Outcomes/Goals 1.PO intake to continue to meet >75% of estimated nutritional needs. 2.Monitor PO intake, wt, nutrition related labs, and skin integrity. 3.F/U as low risk in 7-10 days , 01/31-02/03.
[2020-01-30] MEDS: Atorvastatin Calcium 10 MG TAB PO SCH (21:50)
--- NOTE | 2020-01-31 06:53 | Progress Notes ---
DATE: 01/31/2020 SUBJECTIVE: Chart reviewed and patient interviewed. Also discussed the patient's condition with the staff and reviewed records and labs. The patient was supposed to be discharged yesterday to [facility], but because of patient's need to have COVID-19 virus test prior to her discharge, her discharge was held until the results of the test comes back. The patient also is still anxious and is still suspicious and paranoid, but no agitation and no behavioral problems. The patient is on her baseline and she is compliant with taking her medications with no side effects of medications. The patient's gait is steady. Vital signs are stable and waiting for COVID virus test to come back. MENTAL STATUS EXAMINATION: Calm. Cooperative. Disorganized thoughts. Denies hallucinations and slightly paranoid. Denies suicide or homicide. ASSESSMENT: The patient currently is not suicidal or homicidal, and is calm and not agitated. TREATMENT PLAN: Planning to discharge the patient once COVID virus test is back. At the same time, we will continue same level of treatment and continue to follow up. ESTIMATED LENGTH OF STAY: One to 2 days. REASON FOR CONTINUED HOSPITAL STAY: Waiting for COVID virus test to come back. JOB# [id number]
[2020-01-31] MEDS: Benztropine 1 MG TAB PO SCH ×2 (08:30→17:25)
--- NOTE | 2020-01-31 21:08 | Internal Medicine Prog Note ---
Internal Medicine Subjective - Subjective Service Date: 01/31/20 Patient seen and examined:: without staff (SHE FEELS WELL) Patient is:: awake, verbal, in bed, talking, confused Per staff patient has:: no adverse event Internal Medicine Objective - Physical Exam Vitals and I&O: Vital Signs Temp 97.2 F 01/31/20 20:00 Pulse 86 01/31/20 20:00 Resp 18 01/31/20 20:00 BP 133/84 01/31/20 20:00 Pulse Ox 98 01/31/20 20:00 Intake & Output 01/31/20 01/31/20 02/01/20 06:59 18:59 06:59 Intake Total 240 840 Balance 240 840 Intake: Oral 240 840 Other: # Voids 2 # Bowel Movements 0 Active Medications: Current Medications Acetaminophen (Tylenol) 650 mg PO Q4H PRN PRN Reason: Pain (Mild 1-3) Stop: 03/24/20 01:30 Atenolol (Tenormin) 50 mg PO DAILY [facility] Stop: 03/24/20 08:59 Last Admin: 01/31/20 08:31 Dose: Not Given Atorvastatin Calcium (Lipitor) 10 mg PO HS [facility]; Protocol Stop: 03/24/20 20:59 Last Admin: 01/30/20 21:50 Dose: 10 mg Benztropine Mesylate (Cogentin) 1 mg PO BID [facility] Stop: 03/24/20 08:59 Last Admin: 01/31/20 17:25 Dose: 1 mg Docusate Sodium (Colace) 250 mg PO DAILY [facility] Stop: 03/24/20 08:59 Last Admin: 01/31/20 08:30 Dose: 250 mg Ibuprofen (Motrin) 400 mg PO Q6HR PRN PRN Reason: Pain (Moderate 4-6) Stop: 03/24/20 02:33 Last Admin: 01/28/20 12:44 Dose: 400 mg Lorazepam (Ativan) 0.5 mg PO Q4HR PRN; Protocol PRN Reason: Anxiety Stop: 02/23/20 01:51 Last Admin: 01/26/20 08:47 Dose: 0.5 mg Lorazepam (Ativan) 0.5 mg PO BID [facility]; Protocol Stop: 03/24/20 08:59 Last Admin: 01/31/20 17:25 Dose: 0.5 mg Quetiapine Fumarate (Seroquel) 300 mg PO HS [facility]; Protocol Stop: 03/24/20 20:59 Last Admin: 01/30/20 21:50 Dose: 300 mg Quetiapine Fumarate 50 mg/ (Quetiapine Fumarate 25 mg) 75 mg PO BID [facility] Stop: 03/24/20 09:59 Last Admin: 01/31/20 17:25 Dose: 75 mg Sodium Chloride (Nacl Tab) 1 gm PO TID [facility] Stop: 03/24/20 08:59 Last Admin: 01/31/20 13:18 Dose: 1 gm General: demented, thin HEENT: PERRLA, EOMI, anicteric sclerae, throat clear Neck: Supple, No JVD, No thyromegaly, +2 carotid pulse wo bruit, No LAD, + JVD Lungs: CTAB Cardiovascular: RRR, Normal S1, Normal S2 Abdomen: soft, non-tender, non-distended Extremities: clear Neurological: no change Internal Medicine Assmt/Plan - Assessment Assessment: 1.HTN 2.HYPERLIPIDEMIA. 3.DJD. 4.DEMENTIA - Plan Plan: CONTINUE ON CURRENT MEDICATION AND DIET Nutritional Asmnt/Malnutr-PDOC - Dietary Evaluation Malnutrition Findings (Please click <Entered> for more info): Nutritional Asmnt/Malnutrition Start: 01/25/20 13: 06 Text: Status: Active Freq: Protocol: Document 01/25/20 13:06 JORGE (Rec: 01/25/20 13:09 JORGE [email or web address] [id number]) Nutritional Asmnt/Malnutrition Patient General Information Nutritional Screening Moderate Risk Diagnosis Psychosis Pertinent Medical Hx/Surgical Hx Epilepsy, HTN, Hyperlipidemia, DJD, Dementia Subjective Information Pt is a 59-year-old female admitted on 01/22 d/t aggressive behavior. Pt is eating an estimated 100% of meals Per Meal/Nutrition Activity Record. Dietary is currently providing an estimated 1700 kcals and 70 gm Pro to meet 100+% kcal and 100+% Pro needs. Anthropometrics HT: 51 WT: 120 LB (54.55 kg) BMI: 22.81 (normal) GI/ Skin Integrity GI: WNL, Soft, Flat, Non- tender BM: 01/23 x1 I/O: 1320/Not Noted Skin: WNL, Intact Cali: 21 Diet Order: Cardiac, chopped Estimated Energy Needs: ( Geriatric, CBW) 9899-5538 kcals (25-30 kcals/ kg) 55-65g Pro (1.0-1.2 g/kg) 4422-1306 ml (25-30 ml/kg) Current Diet Order/ Nutrition Support Cardiac, Chopped Pertinent Medications Lipitor, Colace, NaCl Tab Pertinent Labs 01/22: Ca 8.1, Na 121, HDL 38, GFR 73 Nutritional Hx/Data Height 1.55 m Height (Calculated Centimeters) 154.9 Current Weight (lbs) 54.431 kg Weight (Calculated Kilograms) 54.4 Weight (Calculated Grams) 74085.1 [place] Body Weight 105 LB (47.73 kg) % [place] Body Weight 114 Body Mass Index (BMI) 22.6 Weight Status Approriate GI Symptoms GI Symptoms None Last BM 01/23 x1 Skin Integrity/Comment: Skin: WNL, Intact Cali: 21 Current %PO Good (75-100%) Estimated Nutritional Goals BEE in Kcals: Using Current wt Calories/Kcals/Kg 25-30 Kcals Calculated 8814-9926 Protein: Using Current wt Protein g/k.0-1.2 Protein Calculated 55-65 Fluid: ml 8998-6067 ml (25-30 ml/kg) Nutritional Problem No current Nutrition Prob Problem No nutrition diagnosis at this time. Etiology N/A Signs/Symptoms: N/A Malnutrition Related to Morbid Obesity Malnutrition related to morbid obesity No Intervention/Recommendation Comments Continue Cardiac, chopped diet as tolerated. Expected Outcomes/Goals Expected Outcomes/Goals 1.PO intake to continue to meet >75% of estimated nutritional needs. 2.Monitor PO intake, wt, nutrition related labs, and skin integrity. 3.F/U as low risk in 7-10 days , 01/31-02/03.
[2020-01-31] MEDS: Atorvastatin Calcium 10 MG TAB PO SCH (21:31)
--- NOTE | 2020-01-31 21:54 | Progress Notes ---
DATE: 01/30/2020 The patient is supposed to be discharged today. I spoke with masonry contractor administrator of the [place] where the patient is supposed to go to and he wants to have COVID virus test to be done first because they found out that they have a patient that came from [facility] who is a COVID virus test positive. At the same time, the patient is calm and cooperative and no behavioral issues and I dictated discharge summary. ASSESSMENT: The patient has reached her baseline, but waiting for COVID virus test to come back. TREATMENT PLAN: Continue to monitor her condition and waiting for COVID test results. JOB# [id number]
[2020-02-01] MEDS: Benztropine 1 MG TAB PO SCH ×2 (10:00→16:10)
--- NOTE | 2020-02-01 18:00 | Internal Medicine Prog Note ---
Internal Medicine Subjective - Subjective Service Date: 02/01/20 Patient seen and examined:: without staff (she is doing well) Patient is:: awake, verbal, in bed, talking, confused Per staff patient has:: no adverse event Internal Medicine Objective - Physical Exam Vitals and I&O: Vital Signs Temp 97.3 F 02/01/20 14:00 Pulse 72 02/01/20 14:00 Resp 20 02/01/20 14:00 BP 120/74 02/01/20 14:00 Pulse Ox 94 02/01/20 14:00 Intake & Output 01/31/20 02/01/20 02/01/20 18:59 06:59 18:59 Intake Total 717 124 3005 Balance 382 163 1244 Intake: Oral 265 064 2731 Other: # Voids 2 # Bowel Movements 0 1 Active Medications: Current Medications Acetaminophen (Tylenol) 650 mg PO Q4H PRN PRN Reason: Pain (Mild 1-3) Stop: 03/24/20 01:30 Atenolol (Tenormin) 50 mg PO DAILY [facility] Stop: 03/24/20 08:59 Last Admin: 02/01/20 10:00 Dose: Not Given Atorvastatin Calcium (Lipitor) 10 mg PO HS [facility]; Protocol Stop: 03/24/20 20:59 Last Admin: 01/31/20 21:31 Dose: 10 mg Benztropine Mesylate (Cogentin) 1 mg PO BID [facility] Stop: 03/24/20 08:59 Last Admin: 02/01/20 16:10 Dose: Not Given Docusate Sodium (Colace) 250 mg PO DAILY [facility] Stop: 03/24/20 08:59 Last Admin: 02/01/20 10:00 Dose: 250 mg Ibuprofen (Motrin) 400 mg PO Q6HR PRN PRN Reason: Pain (Moderate 4-6) Stop: 03/24/20 02:33 Last Admin: 02/01/20 12:07 Dose: 400 mg Lorazepam (Ativan) 0.5 mg PO Q4HR PRN; Protocol PRN Reason: Anxiety Stop: 02/23/20 01:51 Last Admin: 01/26/20 08:47 Dose: 0.5 mg Lorazepam (Ativan) 0.5 mg PO BID [facility]; Protocol Stop: 03/24/20 08:59 Last Admin: 02/01/20 16:10 Dose: 0.5 mg Quetiapine Fumarate (Seroquel) 300 mg PO HS [facility]; Protocol Stop: 03/24/20 20:59 Last Admin: 01/31/20 21:31 Dose: 300 mg Quetiapine Fumarate 50 mg/ (Quetiapine Fumarate 25 mg) 75 mg PO BID [facility] Stop: 03/24/20 09:59 Last Admin: 02/01/20 16:10 Dose: 75 mg Sodium Chloride (Nacl Tab) 1 gm PO TID [facility] Stop: 03/24/20 08:59 Last Admin: 02/01/20 14:02 Dose: 1 gm Zolpidem Tartrate (Ambien) 5 mg PO HS PRN PRN Reason: Insomnia Stop: 04/01/20 12:05 General: demented, thin HEENT: PERRLA, EOMI, anicteric sclerae, throat clear Neck: Supple, No JVD, No thyromegaly, +2 carotid pulse wo bruit, No LAD, + JVD Lungs: CTAB Cardiovascular: RRR, Normal S1, Normal S2 Abdomen: soft, non-tender, non-distended Extremities: clear Neurological: no change Internal Medicine Assmt/Plan - Assessment Assessment: 1.HTN 2.HYPERLIPIDEMIA. 3.DJD. 4.DEMENTIA - Plan Plan: CONTINUE ON CURRENT MEDICATION AND DIET Nutritional Asmnt/Malnutr-PDOC - Dietary Evaluation Malnutrition Findings (Please click <Entered> for more info): Nutritional Asmnt/Malnutrition Start: 01/25/20 13: 06 Text: Status: Active Freq: Protocol: Document 01/25/20 13:06 JORGE (Rec: 01/25/20 13:09 JORGE [id number]) Nutritional Asmnt/Malnutrition Patient General Information Nutritional Screening Moderate Risk Diagnosis Psychosis Pertinent Medical Hx/Surgical Hx Epilepsy, HTN, Hyperlipidemia, DJD, Dementia Subjective Information Pt is a 59-year-old female admitted on 01/22 d/t aggressive behavior. Pt is eating an estimated 100% of meals Per Meal/Nutrition Activity Record. Dietary is currently providing an estimated 1700 kcals and 70 gm Pro to meet 100+% kcal and 100+% Pro needs. Anthropometrics HT: 51 WT: 120 LB (54.55 kg) BMI: 22.81 (normal) GI/ Skin Integrity GI: WNL, Soft, Flat, Non- tender BM: 01/23 x1 I/O: 1320/Not Noted Skin: WNL, Intact Cali: 21 Diet Order: Cardiac, chopped Estimated Energy Needs: ( Geriatric, CBW) 5294-1067 kcals (25-30 kcals/ kg) 55-65g Pro (1.0-1.2 g/kg) 4799-5518 ml (25-30 ml/kg) Current Diet Order/ Nutrition Support Cardiac, Chopped Pertinent Medications Lipitor, Colace, NaCl Tab Pertinent Labs 01/22: Ca 8.1, Na 121, HDL 38, GFR 73 Nutritional Hx/Data Height 1.55 m Height (Calculated Centimeters) 154.9 Current Weight (lbs) 54.431 kg Weight (Calculated Kilograms) 54.4 Weight (Calculated Grams) 59224.1 [place] Body Weight 105 LB (47.73 kg) % [place] Body Weight 114 Body Mass Index (BMI) 22.6 Weight Status Approriate GI Symptoms GI Symptoms None Last BM 01/23 x1 Skin Integrity/Comment: Skin: WNL, Intact Cali: 21 Current %PO Good (75-100%) Estimated Nutritional Goals BEE in Kcals: Using Current wt Calories/Kcals/Kg 25-30 Kcals Calculated 8342-8168 Protein: Using Current wt Protein g/k.0-1.2 Protein Calculated 55-65 Fluid: ml 4322-4854 ml (25-30 ml/kg) Nutritional Problem No current Nutrition Prob Problem No nutrition diagnosis at this time. Etiology N/A Signs/Symptoms: N/A Malnutrition Related to Morbid Obesity Malnutrition related to morbid obesity No Intervention/Recommendation Comments Continue Cardiac, chopped diet as tolerated. Expected Outcomes/Goals Expected Outcomes/Goals 1.PO intake to continue to meet >75% of estimated nutritional needs. 2.Monitor PO intake, wt, nutrition related labs, and skin integrity. 3.F/U as low risk in 7-10 days , 01/31-02/03.
[2020-02-01] MEDS: Atorvastatin Calcium 10 MG TAB PO SCH (20:25)
--- NOTE | 2020-02-02 02:41 | Progress Notes ---
DATE: 02/01/2020 SUBJECTIVE: Chart reviewed and the patient interviewed. Also discussed the patient's condition with the staff and reviewed records and labs. The patient continued to be anxious and refusing to get the COVID-19 test done. "I am not going to let them stick this long thing in my nose." The patient saying that she did test before and it was negative and that the way they do the test is long probe that is hurting her and she was not doing it again. We will try to see other ways to have the test done and I tried different ways to convince the patient to have it done, but she is refusing it. Also, staff checking if she had the test done recently. Otherwise, the facility is refusing to take her there. On the other hand, the patient continued to be calm and cooperative in all other aspects and she denies any intention to harm herself or others. The patient's gait is steady. Vital signs are stable and no new labs available for review. MENTAL STATUS EXAMINATION: Calm. Cooperative. Thought processes are mainly goal directed. She denies any hallucinations or delusions and denies any thoughts of suicide or homicide. ASSESSMENT: The patient is calm and cooperative, but we need to have COVID test done prior to her discharge because the facility has that as mandatory prior to her readmit there. ESTIMATED LENGTH OF STAY: 1 day until test is done and results are back REASON FOR CONTINUED HOSPITAL STAY: Waiting for COVID test done and the results. JOB# [id number]
--- NOTE | 2020-02-02 07:56 | Discharge Summary ---
DATE OF DISCHARGE: 02/02/2020 AGE: 59. SEX: Female. PHYSICIAN: Dr. Hollins. FINAL DIAGNOSIS: PRIMARY DIAGNOSIS: Schizophrenic disorder, unspecified. MEDICAL DIAGNOSIS: Epilepsy. REASON FOR HOSPITALIZATION: The patient was admitted to the hospital from [facility] because of increased aggressive behavior and agitation with the staff. HOSPITAL COURSE: The patient continued to be slightly confused, but cooperative. The patient also had episodes of irritability. The patient was started on Seroquel and the dose adjusted to 75 mg twice a day and 300 mg at bedtime. The patient's affect was brighter. The patient was less agitated. Because of the facility needed COVID virus which was done before and was negative, the patient's discharge was postponed. The patient was afraid to get another COVID virus and "it is painful and I am not going to let them probe my nose again." Because the patient was not suicidal or homicidal and the test was done before, the patient returned back to the [facility]. The patient had no major medical problems while in the hospital and Dr. Alegre monitored her condition closely. EXPECTED OUTCOME AFTER DISCHARGE: Fair if the patient continues her outpatient treatment and will follow up there. JOB# [id number]
--- NOTE | 2020-02-02 08:05 | Progress Notes ---
DATE: SUBJECTIVE: Chart reviewed and the patient interviewed. Also discussed the patient's condition with the staff and reviewed records and labs. The patient continued to be calm and cooperative and she denies any intention to harm herself or others. The patient also was cooperative and motivated for treatment, but she is refusing to have COVID testing to be done again and said that she did it once and she is not going to do it again because of "painful." Otherwise, the patient continued to comply, was taking her medications with no side effects of medications. The patient's gait is steady. Vital signs are stable. No new labs available for review. TREATMENT PLAN: Plan to discharge the patient today back to [place]. Outpatient treatment and followup will continue as an outpatient. DISCHARGE ACTIVITY: No restrictions. DISCHARGE DIET: Regular. DISCHARGE PSYCHOTROPIC MEDICATIONS: Seroquel 75 mg twice a day and 300 mg at bedtime. EXPECTED OUTCOME AFTER DISCHARGE: Fair if the patient continued to take her medications and follow up with discharge plans. [facility]# [id number]
[2020-02-02] MEDS: Benztropine 1 MG TAB PO SCH ×2 (08:28→16:29)
--- NOTE | 2020-02-02 19:17 | Internal Medicine Prog Note ---
Internal Medicine Subjective - Subjective Service Date: 02/02/20 Patient seen and examined:: without staff (SHE IS DOING BETTER) Patient is:: awake, verbal, in bed, talking, confused Per staff patient has:: no adverse event Internal Medicine Objective - Physical Exam Vitals and I&O: Vital Signs Temp 97 F 02/02/20 14:00 Pulse 67 02/02/20 14:00 Resp 18 02/02/20 14:00 BP 132/52 02/02/20 14:00 Pulse Ox 97 02/02/20 14:00 Intake & Output 02/02/20 02/02/20 02/03/20 06:59 18:59 06:59 Intake Total 240 1000 Balance 240 1000 Intake: Oral 240 1000 Other: # Voids 2 4 # Bowel Movements 0 1 Active Medications: Current Medications Acetaminophen (Tylenol) 650 mg PO Q4H PRN PRN Reason: Pain (Mild 1-3) Stop: 03/24/20 01:30 Atenolol (Tenormin) 50 mg PO DAILY [facility] Stop: 03/24/20 08:59 Last Admin: 02/02/20 08:30 Dose: 50 mg Atorvastatin Calcium (Lipitor) 10 mg PO HS [facility]; Protocol Stop: 03/24/20 20:59 Last Admin: 02/01/20 20:25 Dose: 10 mg Benztropine Mesylate (Cogentin) 1 mg PO BID [facility] Stop: 03/24/20 08:59 Last Admin: 02/02/20 16:29 Dose: 1 mg Docusate Sodium (Colace) 250 mg PO DAILY [facility] Stop: 03/24/20 08:59 Last Admin: 02/02/20 08:29 Dose: 250 mg Ibuprofen (Motrin) 400 mg PO Q6HR PRN PRN Reason: Pain (Moderate 4-6) Stop: 03/24/20 02:33 Last Admin: 02/01/20 12:07 Dose: 400 mg Lorazepam (Ativan) 0.5 mg PO Q4HR PRN; Protocol PRN Reason: Anxiety Stop: 02/23/20 01:51 Last Admin: 01/26/20 08:47 Dose: 0.5 mg Lorazepam (Ativan) 0.5 mg PO BID [facility]; Protocol Stop: 03/24/20 08:59 Last Admin: 02/02/20 16:28 Dose: 0.5 mg Quetiapine Fumarate (Seroquel) 300 mg PO HS [facility]; Protocol Stop: 03/24/20 20:59 Last Admin: 02/01/20 20:25 Dose: 300 mg Quetiapine Fumarate 50 mg/ (Quetiapine Fumarate 25 mg) 75 mg PO BID [facility] Stop: 03/24/20 09:59 Last Admin: 02/02/20 16:28 Dose: 75 mg Sodium Chloride (Nacl Tab) 1 gm PO TID [facility] Stop: 03/24/20 08:59 Last Admin: 02/02/20 13:41 Dose: 1 gm Zolpidem Tartrate (Ambien) 5 mg PO HS PRN PRN Reason: Insomnia Stop: 04/01/20 12:05 General: demented, thin HEENT: PERRLA, EOMI, anicteric sclerae, throat clear Neck: Supple, No JVD, No thyromegaly, +2 carotid pulse wo bruit, No LAD, + JVD Lungs: CTAB Cardiovascular: RRR, Normal S1, Normal S2 Abdomen: soft, non-tender, non-distended Extremities: clear Neurological: no change Internal Medicine Assmt/Plan - Assessment Assessment: 1.HTN 2.HYPERLIPIDEMIA. 3.DJD. 4.DEMENTIA - Plan Plan: CONTINUE ON CURRENT MEDICATION AND DIET Nutritional Asmnt/Malnutr-PDOC - Dietary Evaluation Malnutrition Findings (Please click <Entered> for more info): Nutritional Asmnt/Malnutrition Start: 01/25/20 13: 06 Text: Status: Active Freq: Protocol: Document 01/25/20 13:06 JORGE (Rec: 01/25/20 13:09 JORGE [id number] -[id number]) Nutritional Asmnt/Malnutrition Patient General Information Nutritional Screening Moderate Risk Diagnosis Psychosis Pertinent Medical Hx/Surgical Hx Epilepsy, HTN, Hyperlipidemia, DJD, Dementia Subjective Information Pt is a 59-year-old female admitted on 01/22 d/t aggressive behavior. Pt is eating an estimated 100% of meals Per Meal/Nutrition Activity Record. Dietary is currently providing an estimated 1700 kcals and 70 gm Pro to meet 100+% kcal and 100+% Pro needs. Anthropometrics HT: 51 WT: 120 LB (54.55 kg) BMI: 22.81 (normal) GI/ Skin Integrity GI: WNL, Soft, Flat, Non- tender BM: 01/23 x1 I/O: 1320/Not Noted Skin: WNL, Intact Cali: 21 Diet Order: Cardiac, chopped Estimated Energy Needs: ( Geriatric, CBW) 2460-8860 kcals (25-30 kcals/ kg) 55-65g Pro (1.0-1.2 g/kg) 2443-0224 ml (25-30 ml/kg) Current Diet Order/ Nutrition Support Cardiac, Chopped Pertinent Medications Lipitor, Colace, NaCl Tab Pertinent Labs 01/22: Ca 8.1, Na 121, HDL 38, GFR 73 Nutritional Hx/Data Height 1.55 m Height (Calculated Centimeters) 154.9 Current Weight (lbs) 54.431 kg Weight (Calculated Kilograms) 54.4 Weight (Calculated Grams) 25071.1 [place] Body Weight 105 LB (47.73 kg) % [place] Body Weight 114 Body Mass Index (BMI) 22.6 Weight Status Approriate GI Symptoms GI Symptoms None Last BM 01/23 x1 Skin Integrity/Comment: Skin: WNL, Intact Cali: 21 Current %PO Good (75-100%) Estimated Nutritional Goals BEE in Kcals: Using Current wt Calories/Kcals/Kg 25-30 Kcals Calculated 8314-9582 Protein: Using Current wt Protein g/k.0-1.2 Protein Calculated 55-65 Fluid: ml 7951-6520 ml (25-30 ml/kg) Nutritional Problem No current Nutrition Prob Problem No nutrition diagnosis at this time. Etiology N/A Signs/Symptoms: N/A Malnutrition Related to Morbid Obesity Malnutrition related to morbid obesity No Intervention/Recommendation Comments Continue Cardiac, chopped diet as tolerated. Expected Outcomes/Goals Expected Outcomes/Goals 1.PO intake to continue to meet >75% of estimated nutritional needs. 2.Monitor PO intake, wt, nutrition related labs, and skin integrity. 3.F/U as low risk in 7-10 days , 01/31-02/03.
[2020-02-02] MEDS: Atorvastatin Calcium 10 MG TAB PO SCH (20:05)
[2020-02-03] MEDS: Benztropine 1 MG TAB PO SCH ×2 (10:06→17:55)
--- NOTE | 2020-02-03 20:12 | Internal Medicine Prog Note ---
Internal Medicine Subjective - Subjective Service Date: 02/03/20 Patient seen and examined:: without staff (SHE FEELS WELL) Patient is:: awake, verbal, in bed, talking, confused Per staff patient has:: no adverse event Internal Medicine Objective - Physical Exam Vitals and I&O: Vital Signs Temp 97.8 F 02/03/20 19:58 Pulse 73 02/03/20 19:58 Resp 20 02/03/20 19:58 BP 112/64 02/03/20 19:58 Pulse Ox 97 02/03/20 19:58 Intake & Output 02/03/20 02/03/20 02/04/20 06:59 18:59 06:59 Intake Total 340 1200 240 Balance 340 1200 240 Intake: Oral 340 1200 240 Other: # Voids 1 5 1 # Bowel Movements 0 1 Active Medications: Current Medications Acetaminophen (Tylenol) 650 mg PO Q4H PRN PRN Reason: Pain (Mild 1-3) Stop: 03/24/20 01:30 Atenolol (Tenormin) 50 mg PO DAILY [facility] Stop: 03/24/20 08:59 Last Admin: 02/03/20 10:04 Dose: 50 mg Atorvastatin Calcium (Lipitor) 10 mg PO HS [facility]; Protocol Stop: 03/24/20 20:59 Last Admin: 02/02/20 20:05 Dose: 10 mg Benztropine Mesylate (Cogentin) 1 mg PO BID [facility] Stop: 03/24/20 08:59 Last Admin: 02/03/20 17:55 Dose: 1 mg Docusate Sodium (Colace) 250 mg PO DAILY [facility] Stop: 03/24/20 08:59 Last Admin: 02/03/20 10:06 Dose: 250 mg Ibuprofen (Motrin) 400 mg PO Q6HR PRN PRN Reason: Pain (Moderate 4-6) Stop: 03/24/20 02:33 Last Admin: 02/01/20 12:07 Dose: 400 mg Lorazepam (Ativan) 0.5 mg PO Q4HR PRN; Protocol PRN Reason: Anxiety Stop: 02/23/20 01:51 Last Admin: 01/26/20 08:47 Dose: 0.5 mg Lorazepam (Ativan) 0.5 mg PO BID [facility]; Protocol Stop: 03/24/20 08:59 Last Admin: 02/03/20 17:55 Dose: 0.5 mg Quetiapine Fumarate (Seroquel) 300 mg PO HS [facility]; Protocol Stop: 03/24/20 20:59 Last Admin: 02/02/20 20:04 Dose: 300 mg Quetiapine Fumarate 50 mg/ (Quetiapine Fumarate 25 mg) 75 mg PO BID [facility] Stop: 03/24/20 09:59 Last Admin: 02/03/20 17:56 Dose: 75 mg Sodium Chloride (Nacl Tab) 1 gm PO TID [facility] Stop: 03/24/20 08:59 Last Admin: 02/03/20 13:51 Dose: 1 gm Zolpidem Tartrate (Ambien) 5 mg PO HS PRN PRN Reason: Insomnia Stop: 04/01/20 12:05 Last Admin: 02/02/20 20:04 Dose: 5 mg General: demented, thin HEENT: PERRLA, EOMI, anicteric sclerae, throat clear Neck: Supple, No JVD, No thyromegaly, +2 carotid pulse wo bruit, No LAD, + JVD Lungs: CTAB Cardiovascular: RRR, Normal S1, Normal S2 Abdomen: soft, non-tender, non-distended Extremities: clear Neurological: no change Internal Medicine Assmt/Plan - Assessment Assessment: 1.HTN 2.HYPERLIPIDEMIA. 3.DJD. 4.DEMENTIA - Plan Plan: CONTINUE ON CURRENT MEDICATION AND DIET Nutritional Asmnt/Malnutr-PDOC - Dietary Evaluation Malnutrition Findings (Please click <Entered> for more info): Nutritional Asmnt/Malnutrition Start: 01/25/20 13: 06 Text: Status: Active Freq: Protocol: Document 01/25/20 13:06 JORGE (Rec: 01/25/20 13:09 JORGE [email or web address] -[id number]) Nutritional Asmnt/Malnutrition Patient General Information Nutritional Screening Moderate Risk Diagnosis Psychosis Pertinent Medical Hx/Surgical Hx Epilepsy, HTN, Hyperlipidemia, DJD, Dementia Subjective Information Pt is a 59-year-old female admitted on 01/22 d/t aggressive behavior. Pt is eating an estimated 100% of meals Per Meal/Nutrition Activity Record. Dietary is currently providing an estimated 1700 kcals and 70 gm Pro to meet 100+% kcal and 100+% Pro needs. Anthropometrics HT: 51 WT: 120 LB (54.55 kg) BMI: 22.81 (normal) GI/ Skin Integrity GI: WNL, Soft, Flat, Non- tender BM: 01/23 x1 I/O: 1320/Not Noted Skin: WNL, Intact Cali: 21 Diet Order: Cardiac, chopped Estimated Energy Needs: ( Geriatric, CBW) 1794-1239 kcals (25-30 kcals/ kg) 55-65g Pro (1.0-1.2 g/kg) 5834-8024 ml (25-30 ml/kg) Current Diet Order/ Nutrition Support Cardiac, Chopped Pertinent Medications Lipitor, Colace, NaCl Tab Pertinent Labs 01/22: Ca 8.1, Na 121, HDL 38, GFR 73 Nutritional Hx/Data Height 1.55 m Height (Calculated Centimeters) 154.9 Current Weight (lbs) 54.431 kg Weight (Calculated Kilograms) 54.4 Weight (Calculated Grams) 98391.1 [place] Body Weight 105 LB (47.73 kg) % [place] Body Weight 114 Body Mass Index (BMI) 22.6 Weight Status Approriate GI Symptoms GI Symptoms None Last BM 01/23 x1 Skin Integrity/Comment: Skin: WNL, Intact Cali: 21 Current %PO Good (75-100%) Estimated Nutritional Goals BEE in Kcals: Using Current wt Calories/Kcals/Kg 25-30 Kcals Calculated 5975-2045 Protein: Using Current wt Protein g/k.0-1.2 Protein Calculated 55-65 Fluid: ml 5641-0159 ml (25-30 ml/kg) Nutritional Problem No current Nutrition Prob Problem No nutrition diagnosis at this time. Etiology N/A Signs/Symptoms: N/A Malnutrition Related to Morbid Obesity Malnutrition related to morbid obesity No Intervention/Recommendation Comments Continue Cardiac, chopped diet as tolerated. Expected Outcomes/Goals Expected Outcomes/Goals 1.PO intake to continue to meet >75% of estimated nutritional needs. 2.Monitor PO intake, wt, nutrition related labs, and skin integrity. 3.F/U as low risk in 7-10 days , 01/31-02/03.
[2020-02-03] MEDS: Atorvastatin Calcium 10 MG TAB PO SCH (20:37)
--- NOTE | 2020-02-03 21:51 | Progress Notes ---
DATE: 02/03/2020 SUBJECTIVE: The patient was seen, chart reviewed, and discussed with staff. The patient is currently denying any suicidal or homicidal ideations. She was supposed to be discharged yesterday, but this was rescinded. She has been compliant with her medications, denying any side effects. PLAN: The patient is currently denying any suicidal or homicidal ideations, has been cooperative with treatment. We will monitor the patient on a daily basis for response to medications and titrate medications as needed. [facility]# [id number]
[2020-02-04] MEDS: Benztropine 1 MG TAB PO SCH ×2 (08:16→16:21)
--- NOTE | 2020-02-04 17:34 | Progress Notes ---
DATE: 02/04/2020 SUBJECTIVE: The patient is currently in the hospital. This is a 59-year-old female under the care of Dr. Hollins, conserve status stating that she is not feeling good and wants me to get her off and lower medications, admitted for increased agitation and aggression, attempting to hit herself, forgetful at times, but generally well oriented. Unable to hold a reasonable conversation with her. Still mostly withdrawn, keeps to self, stating, "my head feels better," stating, "I feel too much rigidity" is what she tells me she wants me to lower her dosing of Seroquel. The patient with an apparent history of schizophrenia. Fair sleep and appetite. Medications were reviewed. Labs were reviewed. Vitals were reviewed. She is currently not on lithium, asked me to lower her lithium. She is only on Seroquel as the main mood stabilizing medications and antipsychotic medication, seems to be tolerating No EPS noted. Blood pressure 109/56. MENTAL STATUS EXAMINATION: Stated age, fair eye contact. Unkempt. Mood "okay." Affect flat. Some disorientation and ruminations still appearing internally preoccupied. DIAGNOSES: Schizophrenia, mood unspecified. ASSESSMENT: A 59-year-old female, still with ongoing behavioral disturbances, depression, mostly withdrawn, keeps to self. PLAN: We will continue inpatient monitoring, ongoing symptoms. We will continue dosing of Seroquel. Recommend slow titration. [facility]# [id number]
--- NOTE | 2020-02-04 20:10 | Internal Medicine Prog Note ---
Internal Medicine Subjective - Subjective Service Date: 02/04/20 Patient seen and examined:: without staff (SHE FEELS WELL) Patient is:: awake, verbal, in bed, talking, confused Per staff patient has:: no adverse event Internal Medicine Objective - Physical Exam Vitals and I&O: Vital Signs Temp 97.4 F 02/04/20 14:00 Pulse 68 02/04/20 14:00 Resp 18 02/04/20 14:00 BP 120/70 02/04/20 14:00 Pulse Ox 95 02/04/20 14:00 Intake & Output 02/04/20 02/04/20 02/05/20 06:59 18:59 06:59 Intake Total 420 1200 Balance 420 1200 Intake: Oral 420 1200 Other: # Voids 1 4 # Bowel Movements 1 1 Active Medications: Current Medications Acetaminophen (Tylenol) 650 mg PO Q4H PRN PRN Reason: Pain (Mild 1-3) Stop: 03/24/20 01:30 Atenolol (Tenormin) 50 mg PO DAILY [facility] Stop: 03/24/20 08:59 Last Admin: 02/04/20 08:14 Dose: Not Given Atorvastatin Calcium (Lipitor) 10 mg PO HS [facility]; Protocol Stop: 03/24/20 20:59 Last Admin: 02/03/20 20:37 Dose: 10 mg Benztropine Mesylate (Cogentin) 1 mg PO BID [facility] Stop: 03/24/20 08:59 Last Admin: 02/04/20 16:21 Dose: 1 mg Docusate Sodium (Colace) 250 mg PO DAILY [facility] Stop: 03/24/20 08:59 Last Admin: 02/04/20 08:16 Dose: 250 mg Ibuprofen (Motrin) 400 mg PO Q6HR PRN PRN Reason: Pain (Moderate 4-6) Stop: 03/24/20 02:33 Last Admin: 02/01/20 12:07 Dose: 400 mg Lorazepam (Ativan) 0.5 mg PO Q4HR PRN; Protocol PRN Reason: Anxiety Stop: 02/23/20 01:51 Last Admin: 01/26/20 08:47 Dose: 0.5 mg Lorazepam (Ativan) 0.5 mg PO BID [facility]; Protocol Stop: 03/24/20 08:59 Last Admin: 02/04/20 16:21 Dose: 0.5 mg Quetiapine Fumarate (Seroquel) 300 mg PO HS [facility]; Protocol Stop: 03/24/20 20:59 Last Admin: 02/03/20 20:37 Dose: 300 mg Quetiapine Fumarate 50 mg/ (Quetiapine Fumarate 25 mg) 75 mg PO BID [facility] Stop: 03/24/20 09:59 Last Admin: 02/04/20 16:22 Dose: 75 mg Sodium Chloride (Nacl Tab) 1 gm PO TID [facility] Stop: 03/24/20 08:59 Last Admin: 02/04/20 13:02 Dose: 1 gm Zolpidem Tartrate (Ambien) 5 mg PO HS PRN PRN Reason: Insomnia Stop: 04/01/20 12:05 Last Admin: 02/02/20 20:04 Dose: 5 mg General: demented, thin HEENT: PERRLA, EOMI, anicteric sclerae, throat clear Neck: Supple, No JVD, No thyromegaly, +2 carotid pulse wo bruit, No LAD, + JVD Lungs: CTAB Cardiovascular: RRR, Normal S1, Normal S2 Abdomen: soft, non-tender, non-distended Extremities: clear Neurological: no change Internal Medicine Assmt/Plan - Assessment Assessment: 1.HTN 2.HYPERLIPIDEMIA. 3.DJD. 4.DEMENTIA - Plan Plan: CONTINUE ON CURRENT MEDICATION AND DIET Nutritional Asmnt/Malnutr-PDOC - Dietary Evaluation Malnutrition Findings (Please click <Entered> for more info): Nutritional Asmnt/Malnutrition Start: 01/25/20 13: 06 Text: Status: Complete Freq: Protocol: Document 01/25/20 13:06 JORGE (Rec: 01/25/20 13:09 JORGE [email or web address] -[id number]) Nutritional Asmnt/Malnutrition Patient General Information Nutritional Screening Moderate Risk Diagnosis Psychosis Pertinent Medical Hx/Surgical Hx Epilepsy, HTN, Hyperlipidemia, DJD, Dementia Subjective Information Pt is a 59-year-old female admitted on 01/22 d/t aggressive behavior. Pt is eating an estimated 100% of meals Per Meal/Nutrition Activity Record. Dietary is currently providing an estimated 1700 kcals and 70 gm Pro to meet 100+% kcal and 100+% Pro needs. Anthropometrics HT: 51 WT: 120 LB (54.55 kg) BMI: 22.81 (normal) GI/ Skin Integrity GI: WNL, Soft, Flat, Non- tender BM: 01/23 x1 I/O: 1320/Not Noted Skin: WNL, Intact Cali: 21 Diet Order: Cardiac, chopped Estimated Energy Needs: ( Geriatric, CBW) 3864-0177 kcals (25-30 kcals/ kg) 55-65g Pro (1.0-1.2 g/kg) 8406-1938 ml (25-30 ml/kg) Current Diet Order/ Nutrition Support Cardiac, Chopped Pertinent Medications Lipitor, Colace, NaCl Tab Pertinent Labs 01/22: Ca 8.1, Na 121, HDL 38, GFR 73 Nutritional Hx/Data Height 1.55 m Height (Calculated Centimeters) 154.9 Current Weight (lbs) 54.431 kg Weight (Calculated Kilograms) 54.4 Weight (Calculated Grams) 26615.1 [place] Body Weight 105 LB (47.73 kg) % [place] Body Weight 114 Body Mass Index (BMI) 22.6 Weight Status Approriate GI Symptoms GI Symptoms None Last BM 01/23 x1 Skin Integrity/Comment: Skin: WNL, Intact Cali: 21 Current %PO Good (75-100%) Estimated Nutritional Goals BEE in Kcals: Using Current wt Calories/Kcals/Kg 25-30 Kcals Calculated 8727-7698 Protein: Using Current wt Protein g/k.0-1.2 Protein Calculated 55-65 Fluid: ml 4981-2047 ml (25-30 ml/kg) Nutritional Problem No current Nutrition Prob Problem No nutrition diagnosis at this time. Etiology N/A Signs/Symptoms: N/A Malnutrition Related to Morbid Obesity Malnutrition related to morbid obesity No Intervention/Recommendation Comments Continue Cardiac, chopped diet as tolerated. Expected Outcomes/Goals Expected Outcomes/Goals 1.PO intake to continue to meet >75% of estimated nutritional needs. 2.Monitor PO intake, wt, nutrition related labs, and skin integrity. 3.F/U as low risk in 7-10 days , 01/31-02/03.
[2020-02-04] MEDS: Atorvastatin Calcium 10 MG TAB PO SCH (20:29)
[2020-02-05] MEDS: Benztropine 1 MG TAB PO SCH ×2 (08:18→16:31)
--- NOTE | 2020-02-05 20:41 | Progress Notes ---
DATE: SUBJECTIVE: Chart reviewed and the patient interviewed. Also discussed the patient's condition with the staff and reviewed records and labs. The patient's affect is brighter. The patient is compliant with taking her medications with no side effects of medications. The patient is still refusing to get her COVID-19 test done, but at the same time, I talked to the acting human resources benefits administrator in [facility] about that and because the patient had one test that was negative before, they will take the patient back today. The patient denies any hallucinations or delusions and she denies any thoughts of suicide or homicide. The patient's gait is steady, vital signs are stable and no new labs are available for review. MENTAL STATUS EXAMINATION: Calm. Cooperative. Thought processes mainly goal directed. The patient denies any hallucinations or delusions and denies any thoughts of suicide or homicide. ASSESSMENT: The patient is stable and not suicidal, homicidal or psychotic. TREATMENT PLAN: Plan to discharge the patient today to [facility] Outpatient treatment and followup will continue there. EXPECTED OUTCOME AFTER DISCHARGE: Fair, if the patient continues to take his psychotropic medications and follow up with discharge plans. [facility]# [id number]
--- NOTE | 2020-02-05 20:56 | Internal Medicine Prog Note ---
Internal Medicine Subjective - Subjective Service Date: 02/05/20 Patient seen and examined:: without staff (THE PATIENT FEELS WELL) Patient is:: awake, verbal, in bed, talking, confused Per staff patient has:: no adverse event Internal Medicine Objective - Physical Exam Vitals and I&O: Vital Signs Temp 97.6 F 02/05/20 20:10 Pulse 77 02/05/20 20:10 Resp 20 02/05/20 20:10 BP 129/84 02/05/20 20:10 Pulse Ox 96 02/05/20 20:10 Intake & Output 02/05/20 02/05/20 02/06/20 06:59 18:59 06:59 Intake Total 1200 240 Balance 1200 240 Intake: Oral 1200 240 Other: # Voids 3 6 1 # Bowel Movements 0 1 Active Medications: Current Medications Acetaminophen (Tylenol) 650 mg PO Q4H PRN PRN Reason: Pain (Mild 1-3) Stop: 03/24/20 01:30 Atenolol (Tenormin) 50 mg PO DAILY [facility] Stop: 03/24/20 08:59 Last Admin: 02/05/20 08:18 Dose: 50 mg Atorvastatin Calcium (Lipitor) 10 mg PO HS [facility]; Protocol Stop: 03/24/20 20:59 Last Admin: 02/04/20 20:29 Dose: 10 mg Benztropine Mesylate (Cogentin) 1 mg PO BID [facility] Stop: 03/24/20 08:59 Last Admin: 02/05/20 16:31 Dose: 1 mg Docusate Sodium (Colace) 250 mg PO DAILY [facility] Stop: 03/24/20 08:59 Last Admin: 02/05/20 08:18 Dose: 250 mg Ibuprofen (Motrin) 400 mg PO Q6HR PRN PRN Reason: Pain (Moderate 4-6) Stop: 03/24/20 02:33 Last Admin: 02/05/20 16:42 Dose: 400 mg Lorazepam (Ativan) 0.5 mg PO Q4HR PRN; Protocol PRN Reason: Anxiety Stop: 02/23/20 01:51 Last Admin: 01/26/20 08:47 Dose: 0.5 mg Lorazepam (Ativan) 0.5 mg PO BID [facility]; Protocol Stop: 03/24/20 08:59 Last Admin: 05/04/20 16:31 Dose: 0.5 mg Quetiapine Fumarate (Seroquel) 300 mg PO HS [facility]; Protocol Stop: 03/24/20 20:59 Last Admin: 02/04/20 20:29 Dose: 300 mg Quetiapine Fumarate 50 mg/ (Quetiapine Fumarate 25 mg) 75 mg PO BID [facility] Stop: 03/24/20 09:59 Last Admin: 02/05/20 16:31 Dose: 75 mg Sodium Chloride (Nacl Tab) 1 gm PO TID [facility] Stop: 03/24/20 08:59 Last Admin: 02/05/20 13:36 Dose: 1 gm Zolpidem Tartrate (Ambien) 5 mg PO HS PRN PRN Reason: Insomnia Stop: 04/01/20 12:05 Last Admin: 02/02/20 20:04 Dose: 5 mg General: demented, thin HEENT: PERRLA, EOMI, anicteric sclerae, throat clear Neck: Supple, No JVD, No thyromegaly, +2 carotid pulse wo bruit, No LAD, + JVD Lungs: CTAB Cardiovascular: RRR, Normal S1, Normal S2 Abdomen: soft, non-tender, non-distended Extremities: clear Neurological: no change Internal Medicine Assmt/Plan - Assessment Assessment: 1.HTN 2.HYPERLIPIDEMIA. 3.DJD. 4.DEMENTIA - Plan Plan: CONTINUE ON CURRENT MEDICATION AND DIET Nutritional Asmnt/Malnutr-PDOC - Dietary Evaluation Malnutrition Findings (Please click <Entered> for more info): Nutritional Asmnt/Malnutrition Start: 01/25/20 13: 06 Text: Status: Complete Freq: Protocol: Document 01/25/20 13:06 JORGE (Rec: 01/25/20 13:09 JORGE [email or web address] -[id number]) Nutritional Asmnt/Malnutrition Patient General Information Nutritional Screening Moderate Risk Diagnosis Psychosis Pertinent Medical Hx/Surgical Hx Epilepsy, HTN, Hyperlipidemia, DJD, Dementia Subjective Information Pt is a 59-year-old female admitted on 01/22 d/t aggressive behavior. Pt is eating an estimated 100% of meals Per Meal/Nutrition Activity Record. Dietary is currently providing an estimated 1700 kcals and 70 gm Pro to meet 100+% kcal and 100+% Pro needs. Anthropometrics HT: 51 WT: 120 LB (54.55 kg) BMI: 22.81 (normal) GI/ Skin Integrity GI: WNL, Soft, Flat, Non- tender BM: 01/23 x1 I/O: 1320/Not Noted Skin: WNL, Intact Cali: 21 Diet Order: Cardiac, chopped Estimated Energy Needs: ( Geriatric, CBW) 3302-3026 kcals (25-30 kcals/ kg) 55-65g Pro (1.0-1.2 g/kg) 9591-0574 ml (25-30 ml/kg) Current Diet Order/ Nutrition Support Cardiac, Chopped Pertinent Medications Lipitor, Colace, NaCl Tab Pertinent Labs 01/22: Ca 8.1, Na 121, HDL 38, GFR 73 Nutritional Hx/Data Height 1.55 m Height (Calculated Centimeters) 154.9 Current Weight (lbs) 54.431 kg Weight (Calculated Kilograms) 54.4 Weight (Calculated Grams) 55170.1 [place] Body Weight 105 LB (47.73 kg) % [place] Body Weight 114 Body Mass Index (BMI) 22.6 Weight Status Approriate GI Symptoms GI Symptoms None Last BM 01/23 x1 Skin Integrity/Comment: Skin: WNL, Intact Cali: 21 Current %PO Good (75-100%) Estimated Nutritional Goals BEE in Kcals: Using Current wt Calories/Kcals/Kg 25-30 Kcals Calculated 8079-6407 Protein: Using Current wt Protein g/k.0-1.2 Protein Calculated 55-65 Fluid: ml 6684-5839 ml (25-30 ml/kg) Nutritional Problem No current Nutrition Prob Problem No nutrition diagnosis at this time. Etiology N/A Signs/Symptoms: N/A Malnutrition Related to Morbid Obesity Malnutrition related to morbid obesity No Intervention/Recommendation Comments Continue Cardiac, chopped diet as tolerated. Expected Outcomes/Goals Expected Outcomes/Goals 1.PO intake to continue to meet >75% of estimated nutritional needs. 2.Monitor PO intake, wt, nutrition related labs, and skin integrity. 3.F/U as low risk in 7-10 days , 01/31-02/03.
[2020-02-05] MEDS: Atorvastatin Calcium 10 MG TAB PO SCH (21:13)
[2020-02-06] MEDS: Benztropine 1 MG TAB PO SCH ×2 (08:36→16:29)
--- NOTE | 2020-02-06 12:03 | Progress Notes ---
DATE: 02/06/2020 SUBJECTIVE: The patient is in the hospital and pending COVID-19 testing for placement. Generally calm, likely at her baseline and cooperative. No overt agitation or escalation of behaviors. Sleeping okay, eating okay. On [id number], apparently, she was at some point refusing COVID-19 testing, but per staff, she has been more accepting of it. Staff noting she has been redirectable. Medications were reviewed. Labs reviewed. Vitals were reviewed. MENTAL STATUS EXAMINATION: More linear and engaged, calm. No SI, no HI. PLAN: We will continue to monitor, pending COVID-19 testing, likely at her baseline. [facility]# [id number]
--- NOTE | 2020-02-06 19:34 | Internal Medicine Prog Note ---
Internal Medicine Subjective - Subjective Service Date: 02/06/20 Patient seen and examined:: without staff (SHE IS DOING GOOD) Patient is:: awake, verbal, in bed, talking, confused Per staff patient has:: no adverse event Internal Medicine Objective - Physical Exam Vitals and I&O: Vital Signs Temp 97.7 F 02/06/20 14:00 Pulse 80 02/06/20 14:00 Resp 18 02/06/20 14:00 BP 112/66 02/06/20 14:00 Pulse Ox 96 02/06/20 14:00 Intake & Output 02/06/20 02/06/20 02/07/20 06:59 18:59 06:59 Intake Total 360 1320 Balance 360 1320 Intake: Oral 360 1080 Other 240 Other: # Voids 2 4 # Bowel Movements 0 1 Active Medications: Current Medications Acetaminophen (Tylenol) 650 mg PO Q4H PRN PRN Reason: Pain (Mild 1-3) Stop: 03/24/20 01:30 Atenolol (Tenormin) 50 mg PO DAILY [facility] Stop: 03/24/20 08:59 Last Admin: 02/06/20 08:35 Dose: 50 mg Atorvastatin Calcium (Lipitor) 10 mg PO HS [facility]; Protocol Stop: 03/24/20 20:59 Last Admin: 02/05/20 21:13 Dose: 10 mg Benztropine Mesylate (Cogentin) 1 mg PO BID [facility] Stop: 03/24/20 08:59 Last Admin: 02/06/20 16:29 Dose: 1 mg Docusate Sodium (Colace) 250 mg PO DAILY [facility] Stop: 03/24/20 08:59 Last Admin: 02/06/20 08:36 Dose: 250 mg Ibuprofen (Motrin) 400 mg PO Q6HR PRN PRN Reason: Pain (Moderate 4-6) Stop: 03/24/20 02:33 Last Admin: 02/05/20 16:42 Dose: 400 mg Lorazepam (Ativan) 0.5 mg PO Q4HR PRN; Protocol PRN Reason: Anxiety Stop: 02/23/20 01:51 Last Admin: 01/26/20 08:47 Dose: 0.5 mg Lorazepam (Ativan) 0.5 mg PO BID [facility]; Protocol Stop: 03/24/20 08:59 Last Admin: 02/06/20 16:28 Dose: 0.5 mg Quetiapine Fumarate (Seroquel) 300 mg PO HS [facility]; Protocol Stop: 03/24/20 20:59 Last Admin: 02/05/20 21:13 Dose: 300 mg Quetiapine Fumarate 50 mg/ (Quetiapine Fumarate 25 mg) 75 mg PO BID [facility] Stop: 03/24/20 09:59 Last Admin: 02/06/20 16:28 Dose: 75 mg Sodium Chloride (Nacl Tab) 1 gm PO TID [facility] Stop: 03/24/20 08:59 Last Admin: 02/06/20 13:17 Dose: 1 gm Zolpidem Tartrate (Ambien) 5 mg PO HS PRN PRN Reason: Insomnia Stop: 04/01/20 12:05 Last Admin: 02/05/20 21:14 Dose: 5 mg General: demented, thin HEENT: PERRLA, EOMI, anicteric sclerae, throat clear Neck: Supple, No JVD, No thyromegaly, +2 carotid pulse wo bruit, No LAD, + JVD Lungs: CTAB Cardiovascular: RRR, Normal S1, Normal S2 Abdomen: soft, non-tender, non-distended Extremities: clear Neurological: no change Internal Medicine Assmt/Plan - Assessment Assessment: 1.HTN 2.HYPERLIPIDEMIA. 3.DJD. 4.DEMENTIA - Plan Plan: CONTINUE ON CURRENT MEDICATION AND DIET Nutritional Asmnt/Malnutr-PDOC - Dietary Evaluation Malnutrition Findings (Please click <Entered> for more info): Nutritional Asmnt/Malnutrition Start: 01/25/20 13: 06 Text: Status: Complete Freq: Protocol: Document 01/25/20 13:06 JORGE (Rec: 01/25/20 13:09 JORGE [id number]) Nutritional Asmnt/Malnutrition Patient General Information Nutritional Screening Moderate Risk Diagnosis Psychosis Pertinent Medical Hx/Surgical Hx Epilepsy, HTN, Hyperlipidemia, DJD, Dementia Subjective Information Pt is a 59-year-old female admitted on 01/22 d/t aggressive behavior. Pt is eating an estimated 100% of meals Per Meal/Nutrition Activity Record. Dietary is currently providing an estimated 1700 kcals and 70 gm Pro to meet 100+% kcal and 100+% Pro needs. Anthropometrics HT: 51 WT: 120 LB (54.55 kg) BMI: 22.81 (normal) GI/ Skin Integrity GI: WNL, Soft, Flat, Non- tender BM: 01/23 x1 I/O: 1320/Not Noted Skin: WNL, Intact Cali: 21 Diet Order: Cardiac, chopped Estimated Energy Needs: ( Geriatric, CBW) 7163-3558 kcals (25-30 kcals/ kg) 55-65g Pro (1.0-1.2 g/kg) 1349-0576 ml (25-30 ml/kg) Current Diet Order/ Nutrition Support Cardiac, Chopped Pertinent Medications Lipitor, Colace, NaCl Tab Pertinent Labs 01/22: Ca 8.1, Na 121, HDL 38, GFR 73 Nutritional Hx/Data Height 1.55 m Height (Calculated Centimeters) 154.9 Current Weight (lbs) 54.431 kg Weight (Calculated Kilograms) 54.4 Weight (Calculated Grams) 18662.1 [place] Body Weight 105 LB (47.73 kg) % [place] Body Weight 114 Body Mass Index (BMI) 22.6 Weight Status Approriate GI Symptoms GI Symptoms None Last BM 01/23 x1 Skin Integrity/Comment: Skin: WNL, Intact Cali: 21 Current %PO Good (75-100%) Estimated Nutritional Goals BEE in Kcals: Using Current wt Calories/Kcals/Kg 25-30 Kcals Calculated 7651-2535 Protein: Using Current wt Protein g/k.0-1.2 Protein Calculated 55-65 Fluid: ml 9567-9207 ml (25-30 ml/kg) Nutritional Problem No current Nutrition Prob Problem No nutrition diagnosis at this time. Etiology N/A Signs/Symptoms: N/A Malnutrition Related to Morbid Obesity Malnutrition related to morbid obesity No Intervention/Recommendation Comments Continue Cardiac, chopped diet as tolerated. Expected Outcomes/Goals Expected Outcomes/Goals 1.PO intake to continue to meet >75% of estimated nutritional needs. 2.Monitor PO intake, wt, nutrition related labs, and skin integrity. 3.F/U as low risk in 7-10 days , 01/31-02/03.
[2020-02-06] MEDS: Atorvastatin Calcium 10 MG TAB PO SCH (20:27)
[2020-02-07] MEDS: Benztropine 1 MG TAB PO SCH (08:27)
--- NOTE | 2020-02-07 13:28 | Progress Notes ---
DATE: 02/07/2020 SUBJECTIVE: The patient in the hospital, calm, friendly on exam, generally cooperative, pending discharge. Currently, she has got nowhere to go. She cannot take care of herself, too impoverished. We are trying to get her to a longterm, pending COVID-19 testing. Sleeping well, eating well. Medications reviewed. Labs were reviewed. Vitals reviewed. Discussed with staff. MENTAL STATUS: Linear, engaged. No SI, no HI, no psychosis. PLAN: We will continue to monitor. The patient may be leaving today. JOB# [id number]
--- NOTE | 2020-02-07 21:03 | Internal Medicine Prog Note ---
Internal Medicine Subjective - Subjective Service Date: 02/07/20 Patient seen and examined:: without staff (SHE FEELS WELL) Patient is:: awake, verbal, in bed, talking, confused Per staff patient has:: no adverse event Internal Medicine Objective - Physical Exam Vitals and I&O: Vital Signs Temp 98.7 F 02/07/20 20:22 Pulse 62 02/07/20 20:22 Resp 20 02/07/20 20:22 BP 104/74 02/07/20 20:22 Pulse Ox 95 02/07/20 20:22 Intake & Output 02/07/20 02/07/20 02/08/20 06:59 18:59 06:59 Intake Total 120 1600 120 Balance 120 1600 120 Intake: Oral 120 1600 120 Other: # Voids 3 4 2 # Bowel Movements 0 1 0 Active Medications: Current Medications Acetaminophen (Tylenol 650mg/20.3ml Suspension) 650 mg PO Q4H PRN PRN Reason: Pain (Mild 1-3) Stop: 04/07/20 19:19 Atenolol (Tenormin) 50 mg PO DAILY [facility] Stop: 04/08/20 08:59 Atorvastatin Calcium (Lipitor) 10 mg PO DAILY [facility]; Protocol Stop: 04/08/20 08:59 Benztropine Mesylate (Cogentin) mg PO BID [facility] Stop: 04/08/20 08:59 Haloperidol (Haldol) mg PO BID [facility]; Protocol Stop: 04/08/20 08:59 Ibuprofen (Advil) mg PO Q6H PRN PRN Reason: Pain (Mild 1-3) Stop: 04/07/20 19:22 Lorazepam (Ativan) 0.5 mg PO BID [facility]; Protocol Stop: 04/08/20 08:59 Quetiapine Fumarate (Seroquel) 50 mg PO BID [facility]; Protocol Stop: 04/08/20 08:59 Quetiapine Fumarate (Seroquel) mg PO QDRHS [facility]; Protocol Stop: 04/07/20 19:29 Quetiapine Fumarate (Seroquel Xr) 300 mg PO HS [facility]; Protocol Stop: 04/07/20 20:59 Zolpidem Tartrate (Ambien) 5 mg PO HS PRN PRN Reason: Insomnia Stop: 04/07/20 19:27 General: demented, thin HEENT: PERRLA, EOMI, anicteric sclerae, throat clear Neck: Supple, No JVD, No thyromegaly, +2 carotid pulse wo bruit, No LAD, + JVD Lungs: CTAB Cardiovascular: RRR, Normal S1, Normal S2 Abdomen: soft, non-tender, non-distended Extremities: clear Neurological: no change Internal Medicine Assmt/Plan - Assessment Assessment: 1.HTN 2.HYPERLIPIDEMIA. 3.DJD. 4.DEMENTIA - Plan Plan: CONTINUE ON CURRENT MEDICATION AND DIET Nutritional Asmnt/Malnutr-PDOC - Dietary Evaluation Malnutrition Findings (Please click <Entered> for more info): Nutritional Asmnt/Malnutrition Start: 01/25/20 13: 06 Text: Status: Complete Freq: Protocol: Document 01/25/20 13:06 JORGE (Rec: 01/25/20 13:09 JORGE [email or web address] -[id number]) Nutritional Asmnt/Malnutrition Patient General Information Nutritional Screening Moderate Risk Diagnosis Psychosis Pertinent Medical Hx/Surgical Hx Epilepsy, HTN, Hyperlipidemia, DJD, Dementia Subjective Information Pt is a 59-year-old female admitted on 01/22 d/t aggressive behavior. Pt is eating an estimated 100% of meals Per Meal/Nutrition Activity Record. Dietary is currently providing an estimated 1700 kcals and 70 gm Pro to meet 100+% kcal and 100+% Pro needs. Anthropometrics HT: 51 WT: 120 LB (54.55 kg) BMI: 22.81 (normal) GI/ Skin Integrity GI: WNL, Soft, Flat, Non- tender BM: 01/23 x1 I/O: 1320/Not Noted Skin: WNL, Intact Cali: 21 Diet Order: Cardiac, chopped Estimated Energy Needs: ( Geriatric, CBW) 2960-1942 kcals (25-30 kcals/ kg) 55-65g Pro (1.0-1.2 g/kg) 0006-4649 ml (25-30 ml/kg) Current Diet Order/ Nutrition Support Cardiac, Chopped Pertinent Medications Lipitor, Colace, NaCl Tab Pertinent Labs 01/22: Ca 8.1, Na 121, HDL 38, GFR 73 Nutritional Hx/Data Height 1.55 m Height (Calculated Centimeters) 154.9 Current Weight (lbs) 54.431 kg Weight (Calculated Kilograms) 54.4 Weight (Calculated Grams) 03666.1 [place] Body Weight 105 LB (47.73 kg) % [place] Body Weight 114 Body Mass Index (BMI) 22.6 Weight Status Approriate GI Symptoms GI Symptoms None Last BM 01/23 x1 Skin Integrity/Comment: Skin: WNL, Intact Cali: 21 Current %PO Good (75-100%) Estimated Nutritional Goals BEE in Kcals: Using Current wt Calories/Kcals/Kg 25-30 Kcals Calculated 5667-2771 Protein: Using Current wt Protein g/k.0-1.2 Protein Calculated 55-65 Fluid: ml 5135-5173 ml (25-30 ml/kg) Nutritional Problem No current Nutrition Prob Problem No nutrition diagnosis at this time. Etiology N/A Signs/Symptoms: N/A Malnutrition Related to Morbid Obesity Malnutrition related to morbid obesity No Intervention/Recommendation Comments Continue Cardiac, chopped diet as tolerated. Expected Outcomes/Goals Expected Outcomes/Goals 1.PO intake to continue to meet >75% of estimated nutritional needs. 2.Monitor PO intake, wt, nutrition related labs, and skin integrity. 3.F/U as low risk in 7-10 days , 01/31-02/03.
[2020-02-08] MEDS: Atorvastatin Calcium 10 MG TAB PO SCH (08:33)
[2020-02-08] MEDS ORDERED: Benztropine 1 MG TAB PO SCH (09:00)
[2020-02-08] MEDS: Benztropine 1 MG TAB PO SCH (16:58)
--- NOTE | 2020-02-08 17:50 | Internal Medicine Prog Note ---
Internal Medicine Subjective - Subjective Service Date: 02/08/20 Patient seen and examined:: without staff (SHE IS DOING WELL) Patient is:: awake, verbal, in bed, talking, confused Per staff patient has:: no adverse event Internal Medicine Objective - Physical Exam Vitals and I&O: Vital Signs Temp 97.6 F 02/08/20 14:00 Pulse 96 02/08/20 14:00 Resp 20 02/08/20 14:00 BP 119/94 02/08/20 14:00 Pulse Ox 97 02/08/20 14:00 Intake & Output 02/07/20 02/08/20 02/08/20 18:59 06:59 18:59 Intake Total 1600 240 Balance 1600 240 Intake: Oral 1600 240 Other: # Voids 4 1 # Bowel Movements 1 0 Active Medications: Current Medications Acetaminophen (Tylenol 650mg/20.3ml Suspension) 650 mg PO Q4H PRN PRN Reason: Pain (Mild 1-3) Stop: 04/07/20 19:19 Atenolol (Tenormin) 50 mg PO DAILY [facility] Stop: 04/08/20 08:59 Last Admin: 02/08/20 08:31 Dose: Not Given Atorvastatin Calcium (Lipitor) 10 mg PO DAILY [facility]; Protocol Stop: 04/08/20 08:59 Last Admin: 02/08/20 08:33 Dose: 10 mg Benztropine Mesylate (Cogentin) 1 mg PO BID [facility] Stop: 04/08/20 08:59 Last Admin: 02/08/20 16:58 Dose: 1 mg Haloperidol (Haldol) 2.5 mg PO BID [facility]; Protocol Stop: 04/08/20 08:59 Last Admin: 02/08/20 16:59 Dose: 2.5 mg Ibuprofen (Motrin) 400 mg PO Q6HR PRN PRN Reason: Pain (Moderate 4-6) Stop: 04/07/20 22:14 Lorazepam (Ativan) 0.5 mg PO BID [facility]; Protocol Stop: 04/08/20 08:59 Last Admin: 02/08/20 16:58 Dose: 0.5 mg Quetiapine Fumarate (Seroquel) 50 mg PO BID [facility]; Protocol Stop: 04/08/20 08:59 Last Admin: 02/08/20 17:02 Dose: 50 mg Quetiapine Fumarate 200 mg/ (Quetiapine Fumarate 100 mg) 300 mg PO HS [facility] Stop: 04/08/20 20:59 Zolpidem Tartrate (Ambien) 5 mg PO HS PRN PRN Reason: Insomnia Stop: 04/07/20 19:27 General: demented, thin HEENT: PERRLA, EOMI, anicteric sclerae, throat clear Neck: Supple, No JVD, No thyromegaly, +2 carotid pulse wo bruit, No LAD, + JVD Lungs: CTAB Cardiovascular: RRR, Normal S1, Normal S2 Abdomen: soft, non-tender, non-distended Extremities: clear Neurological: no change Internal Medicine Assmt/Plan - Assessment Assessment: 1.HTN 2.HYPERLIPIDEMIA. 3.DJD. 4.DEMENTIA - Plan Plan: CONTINUE ON CURRENT MEDICATION AND DIET Nutritional Asmnt/Malnutr-PDOC - Dietary Evaluation Malnutrition Findings (Please click <Entered> for more info): Nutritional Asmnt/Malnutrition Start: 01/25/20 13: 06 Text: Status: Complete Freq: Protocol: Document 01/25/20 13:06 JORGE (Rec: 01/25/20 13:09 JORGE [email or web address] -[id number]) Nutritional Asmnt/Malnutrition Patient General Information Nutritional Screening Moderate Risk Diagnosis Psychosis Pertinent Medical Hx/Surgical Hx Epilepsy, HTN, Hyperlipidemia, DJD, Dementia Subjective Information Pt is a 59-year-old female admitted on 01/22 d/t aggressive behavior. Pt is eating an estimated 100% of meals Per Meal/Nutrition Activity Record. Dietary is currently providing an estimated 1700 kcals and 70 gm Pro to meet 100+% kcal and 100+% Pro needs. Anthropometrics HT: 51 WT: 120 LB (54.55 kg) BMI: 22.81 (normal) GI/ Skin Integrity GI: WNL, Soft, Flat, Non- tender BM: 01/23 x1 I/O: 1320/Not Noted Skin: WNL, Intact Cali: 21 Diet Order: Cardiac, chopped Estimated Energy Needs: ( Geriatric, CBW) 9373-6334 kcals (25-30 kcals/ kg) 55-65g Pro (1.0-1.2 g/kg) 7244-6872 ml (25-30 ml/kg) Current Diet Order/ Nutrition Support Cardiac, Chopped Pertinent Medications Lipitor, Colace, NaCl Tab Pertinent Labs 01/22: Ca 8.1, Na 121, HDL 38, GFR 73 Nutritional Hx/Data Height 1.55 m Height (Calculated Centimeters) 154.9 Current Weight (lbs) 54.431 kg Weight (Calculated Kilograms) 54.4 Weight (Calculated Grams) 53661.1 [place] Body Weight 105 LB (47.73 kg) % [place] Body Weight 114 Body Mass Index (BMI) 22.6 Weight Status Approriate GI Symptoms GI Symptoms None Last BM 01/23 x1 Skin Integrity/Comment: Skin: WNL, Intact Cali: 21 Current %PO Good (75-100%) Estimated Nutritional Goals BEE in Kcals: Using Current wt Calories/Kcals/Kg 25-30 Kcals Calculated 0417-2478 Protein: Using Current wt Protein g/k.0-1.2 Protein Calculated 55-65 Fluid: ml 2702-2948 ml (25-30 ml/kg) Nutritional Problem No current Nutrition Prob Problem No nutrition diagnosis at this time. Etiology N/A Signs/Symptoms: N/A Malnutrition Related to Morbid Obesity Malnutrition related to morbid obesity No Intervention/Recommendation Comments Continue Cardiac, chopped diet as tolerated. Expected Outcomes/Goals Expected Outcomes/Goals 1.PO intake to continue to meet >75% of estimated nutritional needs. 2.Monitor PO intake, wt, nutrition related labs, and skin integrity. 3.F/U as low risk in 7-10 days , 01/31-02/03.
--- NOTE | 2020-02-08 18:47 | Discharge Summary ---
DATE OF DISCHARGE: 02/08/2020 AGE: 59. SEX: Female. PHYSICIAN: Dr. Hollins. FINAL DIAGNOSIS: Schizophrenic disorder. The patient was supposed to be discharged, but [facility] did not accept the patient because of needed COVID-19 test prior to her return to the [facility]. The patient was tested and test came back negative. The patient to be discharged there. Discharge summary was dictated 2 days ago and no change in her mood or her behavior. JOB# [id number]
[2020-02-08] MEDS: QUEtiapine Fumarate ER 200 MG, QUEtiapine Fumarate ER 100 MG PO SCH (21:36)
--- NOTE | 2020-02-09 08:27 | Progress Notes ---
DATE: 02/09/2020 SUBJECTIVE: Chart reviewed and the patient interviewed. Also discussed the patient's condition with the staff and reviewed records and labs. The patient was supposed to be discharged and everyday the patient was supposed to be discharged yet. The patient's discharge order that I placed in the chart was not carried over and the patient is still in the hospital. The patient is calm and cooperative and she is interacting appropriately. The patient also denies any hallucinations or delusions and denies any suicide or homicide. The patient's gait is steady and vital signs are stable and no new labs available for review. MENTAL STATUS EXAMINATION: Calm. Cooperative. Denies any hallucinations or delusions and denies any suicidal or homicidal ideations. ASSESSMENT: The patient is not suicidal or homicidal or psychotic. TREATMENT PLAN: Planning to discharge the patient today, hopefully my discharge order will be carried over since the patient does not meet any criteria for acute hospitalization and I gave instructions again to the nursing staff to be sure that the patient to be discharged or to call me if they are going to cancel the discharge for any reason. At the same time, we will continue current treatment and current medications. EXPECTED OUTCOME AFTER DISCHARGE: Fair if the patient continues to take his psychotropic medications and follow up with discharge plans. JOB# [id number]
[2020-02-09] MEDS: Atorvastatin Calcium 10 MG TAB PO SCH (09:46)
[2020-02-09] MEDS: Benztropine 1 MG TAB PO SCH ×2 (09:47→17:17)
--- NOTE | 2020-02-09 20:32 | Internal Medicine Prog Note ---
Internal Medicine Subjective - Subjective Service Date: 02/09/20 Patient seen and examined:: without staff (SHE FEELS WELL) Patient is:: awake, verbal, in bed, talking, confused Per staff patient has:: no adverse event Internal Medicine Objective - Physical Exam Vitals and I&O: Vital Signs Temp 97.3 F 02/09/20 14:00 Pulse 78 02/09/20 14:00 Resp 20 02/09/20 14:00 BP 148/78 02/09/20 14:00 Pulse Ox 96 02/09/20 14:00 Intake & Output 02/09/20 02/09/20 02/10/20 06:59 18:59 06:59 Intake Total 120 1200 Balance 120 1200 Intake: Oral 120 1200 Other: # Voids 3 5 # Bowel Movements 1 Active Medications: Current Medications Acetaminophen (Tylenol 650mg/20.3ml Suspension) 650 mg PO Q4H PRN PRN Reason: Pain (Mild 1-3) Stop: 04/07/20 19:19 Atenolol (Tenormin) 50 mg PO DAILY [facility] Stop: 04/08/20 08:59 Last Admin: 02/09/20 09:54 Dose: 50 mg Atorvastatin Calcium (Lipitor) 10 mg PO DAILY [facility]; Protocol Stop: 04/08/20 08:59 Last Admin: 02/09/20 09:46 Dose: 10 mg Benztropine Mesylate (Cogentin) 1 mg PO BID [facility] Stop: 04/08/20 08:59 Last Admin: 02/09/20 17:17 Dose: 1 mg Haloperidol (Haldol) 2.5 mg PO BID [facility]; Protocol Stop: 04/08/20 08:59 Last Admin: 02/09/20 17:15 Dose: 2.5 mg Ibuprofen (Motrin) 400 mg PO Q6HR PRN PRN Reason: Pain (Moderate 4-6) Stop: 04/07/20 22:14 Lorazepam (Ativan) 0.5 mg PO BID [facility]; Protocol Stop: 04/08/20 08:59 Last Admin: 02/09/20 17:16 Dose: 0.5 mg Quetiapine Fumarate (Seroquel) 50 mg PO BID [facility]; Protocol Stop: 04/08/20 08:59 Last Admin: 02/09/20 17:15 Dose: 50 mg Quetiapine Fumarate 200 mg/ (Quetiapine Fumarate 100 mg) 300 mg PO HS [facility] Stop: 04/08/20 20:59 Last Admin: 02/08/20 21:36 Dose: 300 mg Zolpidem Tartrate (Ambien) 5 mg PO HS PRN PRN Reason: Insomnia Stop: 04/07/20 19:27 Last Admin: 02/08/20 21:37 Dose: 5 mg General: demented, thin HEENT: PERRLA, EOMI, anicteric sclerae, throat clear Neck: Supple, No JVD, No thyromegaly, +2 carotid pulse wo bruit, No LAD, + JVD Lungs: CTAB Cardiovascular: RRR, Normal S1, Normal S2 Abdomen: soft, non-tender, non-distended Extremities: clear Neurological: no change Internal Medicine Assmt/Plan - Assessment Assessment: 1.HTN 2.HYPERLIPIDEMIA. 3.DJD. 4.DEMENTIA - Plan Plan: CONTINUE ON CURRENT MEDICATION AND DIET Nutritional Asmnt/Malnutr-PDOC - Dietary Evaluation Malnutrition Findings (Please click <Entered> for more info): Nutritional Asmnt/Malnutrition Start: 01/25/20 13: 06 Text: Status: Complete Freq: Protocol: Document 01/25/20 13:06 JORGE (Rec: 01/25/20 13:09 JORGE [email or web address] -[id number]) Nutritional Asmnt/Malnutrition Patient General Information Nutritional Screening Moderate Risk Diagnosis Psychosis Pertinent Medical Hx/Surgical Hx Epilepsy, HTN, Hyperlipidemia, DJD, Dementia Subjective Information Pt is a 59-year-old female admitted on 01/22 d/t aggressive behavior. Pt is eating an estimated 100% of meals Per Meal/Nutrition Activity Record. Dietary is currently providing an estimated 1700 kcals and 70 gm Pro to meet 100+% kcal and 100+% Pro needs. Anthropometrics HT: 51 WT: 120 LB (54.55 kg) BMI: 22.81 (normal) GI/ Skin Integrity GI: WNL, Soft, Flat, Non- tender BM: 01/23 x1 I/O: 1320/Not Noted Skin: WNL, Intact Cali: 21 Diet Order: Cardiac, chopped Estimated Energy Needs: ( Geriatric, CBW) 2653-8132 kcals (25-30 kcals/ kg) 55-65g Pro (1.0-1.2 g/kg) 7056-1870 ml (25-30 ml/kg) Current Diet Order/ Nutrition Support Cardiac, Chopped Pertinent Medications Lipitor, Colace, NaCl Tab Pertinent Labs 01/22: Ca 8.1, Na 121, HDL 38, GFR 73 Nutritional Hx/Data Height 1.55 m Height (Calculated Centimeters) 154.9 Current Weight (lbs) 54.431 kg Weight (Calculated Kilograms) 54.4 Weight (Calculated Grams) 21553.1 [place] Body Weight 105 LB (47.73 kg) % [place] Body Weight 114 Body Mass Index (BMI) 22.6 Weight Status Approriate GI Symptoms GI Symptoms None Last BM 01/23 x1 Skin Integrity/Comment: Skin: WNL, Intact Cali: 21 Current %PO Good (75-100%) Estimated Nutritional Goals BEE in Kcals: Using Current wt Calories/Kcals/Kg 25-30 Kcals Calculated 9625-2169 Protein: Using Current wt Protein g/k.0-1.2 Protein Calculated 55-65 Fluid: ml 2570-1728 ml (25-30 ml/kg) Nutritional Problem No current Nutrition Prob Problem No nutrition diagnosis at this time. Etiology N/A Signs/Symptoms: N/A Malnutrition Related to Morbid Obesity Malnutrition related to morbid obesity No Intervention/Recommendation Comments Continue Cardiac, chopped diet as tolerated. Expected Outcomes/Goals Expected Outcomes/Goals 1.PO intake to continue to meet >75% of estimated nutritional needs. 2.Monitor PO intake, wt, nutrition related labs, and skin integrity. 3.F/U as low risk in 7-10 days , 01/31-02/03.
[2020-02-09] MEDS: QUEtiapine Fumarate ER 200 MG, QUEtiapine Fumarate ER 100 MG PO SCH (20:44)
[2020-02-10] MEDS: Benztropine 1 MG TAB PO SCH ×2 (08:39→17:05)
[2020-02-10] MEDS: Atorvastatin Calcium 10 MG TAB PO SCH (08:40)
[2020-02-10] MEDS: QUEtiapine Fumarate ER 200 MG, QUEtiapine Fumarate ER 100 MG PO SCH (20:46)
--- NOTE | 2020-02-10 20:48 | Psych Progress Note ---
Psych Progress Note - Intro Date of Progress Note: 02/10/20 - Assessment Assessment: Patient interviewed, case discussed with staff, chart and records were reviewed. Per the staff the patient has been medication adherent no behavioral episodes has episodes of confusion but overall improved. The patient also was able to sleep over 7 hours last night. Tolerating medications well no side effects noted. Per Dr. Salomon note the patient was supposed to be discharged yesterday however the patient is still here in the hospital. - Vitals, I&O Vitals: Vital Signs - 24 hr 02/10/20 02/10/20 02/10/20 06:50 08:39 14:00 Temp 97.7 F 97.5 F HR 81 114 69 RR 20 18 BP 109/53 122/84 111/71 O2 Sat % 94 96 02/10/20 20:11 Temp 97.8 F HR 77 RR 20 BP 111/58 O2 Sat % 96 - Objective Psych General Appearance: Report: No acute distress Psych Behavior: Report: Calm Psych Speech: Report: Coherent Psych Mood: Report: Euthymic Psych Affect: Report: Blunted Psych Insight: Report: Impaired Psych Judgement: Report: Impaired - Plan Plan: Continue current treatment plan. We will follow-up with discharge order. - Review of Relevant Data Review of Relevant Data: I have reviewed the following items and time andrew (where applicable) has been applied. Psych Data Reviewed: Vitals - Medications Current Medications: Current Medications Acetaminophen (Tylenol 650mg/20.3ml Suspension) 650 mg PO Q4H PRN PRN Reason: Pain (Mild 1-3) Stop: 04/07/20 19:19 Atenolol (Tenormin) 50 mg PO DAILY [facility] Stop: 04/08/20 08:59 Last Admin: 02/10/20 08:39 Dose: 50 mg Atorvastatin Calcium (Lipitor) 10 mg PO DAILY [facility]; Protocol Stop: 04/08/20 08:59 Last Admin: 02/10/20 08:40 Dose: 10 mg Benztropine Mesylate (Cogentin) 1 mg PO BID [facility] Stop: 04/08/20 08:59 Last Admin: 02/10/20 17:05 Dose: 1 mg Haloperidol (Haldol) 2.5 mg PO BID [facility]; Protocol Stop: 04/08/20 08:59 Last Admin: 02/10/20 17:05 Dose: 2.5 mg Ibuprofen (Motrin) 400 mg PO Q6HR PRN PRN Reason: Pain (Moderate 4-6) Stop: 04/07/20 22:14 Lorazepam (Ativan) 0.5 mg PO BID [facility]; Protocol Stop: 04/08/20 08:59 Last Admin: 02/10/20 17:05 Dose: 0.5 mg Quetiapine Fumarate (Seroquel) 50 mg PO BID [facility]; Protocol Stop: 04/08/20 08:59 Last Admin: 02/10/20 17:05 Dose: 50 mg Quetiapine Fumarate 200 mg/ (Quetiapine Fumarate 100 mg) 300 mg PO HS [facility] Stop: 04/08/20 20:59 Last Admin: 02/10/20 20:46 Dose: 300 mg Zolpidem Tartrate (Ambien) 5 mg PO HS PRN PRN Reason: Insomnia Stop: 04/07/20 19:27 Last Admin: 02/10/20 20:46 Dose: 5 mg
[2020-02-11] MEDS: Atorvastatin Calcium 10 MG TAB PO SCH (08:44)
[2020-02-11] MEDS: Benztropine 1 MG TAB PO SCH ×2 (08:44→16:39)
--- NOTE | 2020-02-11 19:05 | General Progress Note ---
Subjective - Review of Systems Service Date: 02/11/20 Subjective: resting comfortably no distress Objective - Physical Exam Vitals and I&O: Vital Signs Temp 98.0 F 02/11/20 14:00 Pulse 60 02/11/20 14:00 Resp 18 02/11/20 14:00 BP 141/77 02/11/20 14:00 Pulse Ox 92 02/11/20 14:00 Intake & Output 02/11/20 02/11/20 02/12/20 06:59 18:59 06:59 Intake Total 600 1000 Balance 600 1000 Intake: Oral 600 1000 Other: # Voids 1 # Bowel Movements 0 Active Medications: Current Medications Acetaminophen (Tylenol 650mg/20.3ml Suspension) 650 mg PO Q4H PRN PRN Reason: Pain (Mild 1-3) Stop: 04/07/20 19:19 Atenolol (Tenormin) 50 mg PO DAILY [facility] Stop: 04/08/20 08:59 Last Admin: 02/11/20 08:44 Dose: 50 mg Atorvastatin Calcium (Lipitor) 10 mg PO DAILY [facility]; Protocol Stop: 04/08/20 08:59 Last Admin: 02/11/20 08:44 Dose: 10 mg Benztropine Mesylate (Cogentin) 1 mg PO BID [facility] Stop: 04/08/20 08:59 Last Admin: 02/11/20 16:39 Dose: 1 mg Haloperidol (Haldol) 2.5 mg PO BID [facility]; Protocol Stop: 04/08/20 08:59 Last Admin: 02/11/20 16:38 Dose: 2.5 mg Ibuprofen (Motrin) 400 mg PO Q6HR PRN PRN Reason: Pain (Moderate 4-6) Stop: 04/07/20 22:14 Lorazepam (Ativan) 0.5 mg PO BID [facility]; Protocol Stop: 04/08/20 08:59 Last Admin: 02/11/20 16:39 Dose: 0.5 mg Quetiapine Fumarate (Seroquel) 50 mg PO BID [facility]; Protocol Stop: 04/08/20 08:59 Last Admin: 02/11/20 16:39 Dose: 50 mg Quetiapine Fumarate 200 mg/ (Quetiapine Fumarate 100 mg) 300 mg PO [facility] Stop: 04/08/20 20:59 Last Admin: 05/09/20 20:46 Dose: 300 mg Zolpidem Tartrate (Ambien) 5 mg PO HS PRN PRN Reason: Insomnia Stop: 04/07/20 19:27 Last Admin: 02/10/20 20:46 Dose: 5 mg General: No acute distress HEENT: Atraumatic, PERRLA Neck: Supple, JVD Cardiovascular: Regular rate, Normal S1, Normal S2 Lungs: Clear to auscultation Abdomen: Bowel sounds, Soft Assessment/Plan - Assessment Assessment: 1.HTN 2.HYPERLIPIDEMIA. 3.DJD. 4.DEMENTIA - Plan Plan: continue current treatment Nutritional Asmnt/Malnutr-PDOC - Dietary Evaluation Malnutrition Findings (Please click <Entered> for more info): Nutritional Asmnt/Malnutrition Start: 01/25/20 13: 06 Text: Status: Complete Freq: Protocol: Document 01/25/20 13:06 JORGE (Rec: 01/25/20 13:09 JORGE [id number]) Nutritional Asmnt/Malnutrition Patient General Information Nutritional Screening Moderate Risk Diagnosis Psychosis Pertinent Medical Hx/Surgical Hx Epilepsy, HTN, Hyperlipidemia, DJD, Dementia Subjective Information Pt is a 59-year-old female admitted on 01/22 d/t aggressive behavior. Pt is eating an estimated 100% of meals Per Meal/Nutrition Activity Record. Dietary is currently providing an estimated 1700 kcals and 70 gm Pro to meet 100+% kcal and 100+% Pro needs. Anthropometrics HT: 51 WT: 120 LB (54.55 kg) BMI: 22.81 (normal) GI/ Skin Integrity GI: WNL, Soft, Flat, Non- tender BM: 01/23 x1 I/O: 1320/Not Noted Skin: WNL, Intact Cali: 21 Diet Order: Cardiac, chopped Estimated Energy Needs: ( Geriatric, CBW) 9219-5843 kcals (25-30 kcals/ kg) 55-65g Pro (1.0-1.2 g/kg) 0338-2352 ml (25-30 ml/kg) Current Diet Order/ Nutrition Support Cardiac, Chopped Pertinent Medications Lipitor, Colace, NaCl Tab Pertinent Labs 01/22: Ca 8.1, Na 121, HDL 38, GFR 73 Nutritional Hx/Data Height 1.55 m Height (Calculated Centimeters) 154.9 Current Weight (lbs) 54.431 kg Weight (Calculated Kilograms) 54.4 Weight (Calculated Grams) 54128.1 [place] Body Weight 105 LB (47.73 kg) % [place] Body Weight 114 Body Mass Index (BMI) 22.6 Weight Status Approriate GI Symptoms GI Symptoms None Last BM 01/23 x1 Skin Integrity/Comment: Skin: WNL, Intact Cali: 21 Current %PO Good (75-100%) Estimated Nutritional Goals BEE in Kcals: Using Current wt Calories/Kcals/Kg 25-30 Kcals Calculated 7580-4405 Protein: Using Current wt Protein g/k.0-1.2 Protein Calculated 55-65 Fluid: ml 4807-1368 ml (25-30 ml/kg) Nutritional Problem No current Nutrition Prob Problem No nutrition diagnosis at this time. Etiology N/A Signs/Symptoms: N/A Malnutrition Related to Morbid Obesity Malnutrition related to morbid obesity No Intervention/Recommendation Comments Continue Cardiac, chopped diet as tolerated. Expected Outcomes/Goals Expected Outcomes/Goals 1.PO intake to continue to meet >75% of estimated nutritional needs. 2.Monitor PO intake, wt, nutrition related labs, and skin integrity. 3.F/U as low risk in 7-10 days , 01/31-02/03.
--- NOTE | 2020-02-11 19:09 | Psych Progress Note ---
Psych Progress Note - Intro Date of Progress Note: 02/11/20 - Assessment Assessment: Patient interviewed, case discussed with staff, chart and records were reviewed. Per the staff the patient has been medication adherent no behavioral episodes has episodes of confusion but overall improved. The patient is sleeping well. Tolerating medications well no side effects noted. Per Dr. Salomon note the patient was supposed to be discharged before the weekend but the facilty is having issues so the patient is still here in the hospital. - Vitals, I&O Vitals: Vital Signs - 24 hr 02/10/20 02/11/20 02/11/20 20:11 06:26 08:44 Temp 97.8 F 98.0 F HR 77 77 77 RR 20 20 BP 111/58 109/65 109/65 O2 Sat % 96 92 02/11/20 14:00 Temp 98.0 F HR 60 RR 18 BP 141/77 O2 Sat % 92 - Objective Psych General Appearance: Report: No acute distress Psych Behavior: Report: Calm Psych Speech: Report: Coherent Psych Mood: Report: Euthymic Psych Affect: Report: Blunted Psych Insight: Report: Impaired Psych Judgement: Report: Impaired - Plan Plan: Continue current treatment plan. We will follow-up with discharge order. - Review of Relevant Data Review of Relevant Data: I have reviewed the following items and time andrew (where applicable) has been applied. - Medications Current Medications: Current Medications Acetaminophen (Tylenol 650mg/20.3ml Suspension) 650 mg PO Q4H PRN PRN Reason: Pain (Mild 1-3) Stop: 04/07/20 19:19 Atenolol (Tenormin) 50 mg PO DAILY [facility] Stop: 04/08/20 08:59 Last Admin: 02/11/20 08:44 Dose: 50 mg Atorvastatin Calcium (Lipitor) 10 mg PO DAILY [facility]; Protocol Stop: 04/08/20 08:59 Last Admin: 02/11/20 08:44 Dose: 10 mg Benztropine Mesylate (Cogentin) 1 mg PO BID [facility] Stop: 04/08/20 08:59 Last Admin: 02/11/20 16:39 Dose: 1 mg Haloperidol (Haldol) 2.5 mg PO BID [facility]; Protocol Stop: 04/08/20 08:59 Last Admin: 02/11/20 16:38 Dose: 2.5 mg Ibuprofen (Motrin) 400 mg PO Q6HR PRN PRN Reason: Pain (Moderate 4-6) Stop: 04/07/20 22:14 Lorazepam (Ativan) 0.5 mg PO BID [facility]; Protocol Stop: 04/08/20 08:59 Last Admin: 02/11/20 16:39 Dose: 0.5 mg Quetiapine Fumarate (Seroquel) 50 mg PO BID [facility]; Protocol Stop: 04/08/20 08:59 Last Admin: 02/11/20 16:39 Dose: 50 mg Quetiapine Fumarate 200 mg/ (Quetiapine Fumarate 100 mg) 300 mg PO HS [facility] Stop: 04/08/20 20:59 Last Admin: 02/10/20 20:46 Dose: 300 mg Zolpidem Tartrate (Ambien) 5 mg PO HS PRN PRN Reason: Insomnia Stop: 04/07/20 19:27 Last Admin: 02/10/20 20:46 Dose: 5 mg
[2020-02-11] MEDS: QUEtiapine Fumarate ER 200 MG, QUEtiapine Fumarate ER 100 MG PO SCH (21:16)
[2020-02-12] MEDS: Atorvastatin Calcium 10 MG TAB PO SCH (08:58)
[2020-02-12] MEDS: Benztropine 1 MG TAB PO SCH ×2 (08:58→16:40)
--- NOTE | 2020-02-12 11:42 | Progress Notes ---
DATE: 02/12/2020 SUBJECTIVE: Chart reviewed and the patient interviewed. Also discussed the patient's condition with the staff and reviewed records and labs. The patient was supposed to be discharged to [place] yesterday, but the patient is still in-house. It is not clear to me why the patient is still in-house and I have no communication from staff and nobody even called me to cancel the discharge last Wednesday. The patient is calm and cooperative and she herself asking why she did not leave. She is compliant with taking her medications and the patient denies any side effects of medications. COVID-19 test was done and results are negative. Gait is steady. Vital signs are stable and no new labs available for review. TREATMENT PLAN: Planning to discharge the patient today and outpatient treatment and followup to continue as an outpatient. Discharge orders written. JOB# [id number]
--- NOTE | 2020-02-12 20:36 | Internal Medicine Prog Note ---
Internal Medicine Subjective - Subjective Service Date: 02/12/20 Patient seen and examined:: without staff (she feels well) Patient is:: awake, verbal, in bed, talking, confused Per staff patient has:: no adverse event Internal Medicine Objective - Physical Exam Vitals and I&O: Vital Signs Temp 98.1 F 02/12/20 20:21 Pulse 78 02/12/20 20:21 Resp 20 02/12/20 20:21 BP 98/59 02/12/20 20:21 Pulse Ox 92 02/12/20 20:21 Intake & Output 02/12/20 02/12/20 02/13/20 06:59 18:59 06:59 Intake Total 460 900 360 Balance 460 900 360 Intake: Oral 460 900 360 Other: # Voids 1 3 3 # Bowel Movements 0 1 0 Active Medications: Current Medications Acetaminophen (Tylenol 650mg/20.3ml Suspension) 650 mg PO Q4H PRN PRN Reason: Pain (Mild 1-3) Stop: 04/07/20 19:19 Atenolol (Tenormin) 50 mg PO DAILY [facility] Stop: 04/08/20 08:59 Last Admin: 02/12/20 08:57 Dose: Not Given Atorvastatin Calcium (Lipitor) 10 mg PO DAILY [facility]; Protocol Stop: 04/08/20 08:59 Last Admin: 02/12/20 08:58 Dose: 10 mg Benztropine Mesylate (Cogentin) 1 mg PO BID [facility] Stop: 04/08/20 08:59 Last Admin: 02/12/20 16:40 Dose: 1 mg Haloperidol (Haldol) 2.5 mg PO BID [facility]; Protocol Stop: 04/08/20 08:59 Last Admin: 02/12/20 16:40 Dose: 2.5 mg Ibuprofen (Motrin) 400 mg PO Q6HR PRN PRN Reason: Pain (Moderate 4-6) Stop: 04/07/20 22:14 Lorazepam (Ativan) 0.5 mg PO BID [facility]; Protocol Stop: 04/08/20 08:59 Last Admin: 02/12/20 16:40 Dose: 0.5 mg Quetiapine Fumarate (Seroquel) 50 mg PO BID [facility]; Protocol Stop: 04/08/20 08:59 Last Admin: 02/12/20 16:39 Dose: 50 mg Quetiapine Fumarate 200 mg/ (Quetiapine Fumarate 100 mg) 300 mg PO HS [facility] Stop: 04/08/20 20:59 Last Admin: 02/11/20 21:16 Dose: 300 mg Zolpidem Tartrate (Ambien) 5 mg PO HS PRN PRN Reason: Insomnia Stop: 04/07/20 19:27 Last Admin: 02/11/20 21:16 Dose: 5 mg General: demented, thin HEENT: PERRLA, EOMI, anicteric sclerae, throat clear Neck: Supple, No JVD, No thyromegaly, +2 carotid pulse wo bruit, No LAD, + JVD Lungs: CTAB Cardiovascular: RRR, Normal S1, Normal S2 Abdomen: soft, non-tender, non-distended Extremities: clear Neurological: no change Internal Medicine Assmt/Plan - Assessment Assessment: 1.HTN 2.HYPERLIPIDEMIA. 3.DJD. 4.DEMENTIA - Plan Plan: CONTINUE ON CURRENT MEDICATION AND DIET Nutritional Asmnt/Malnutr-PDOC - Dietary Evaluation Malnutrition Findings (Please click <Entered> for more info): Nutritional Asmnt/Malnutrition Start: 01/25/20 13: 06 Text: Status: Complete Freq: Protocol: Document 01/25/20 13:06 JORGE (Rec: 01/25/20 13:09 JORGE [id number]) Nutritional Asmnt/Malnutrition Patient General Information Nutritional Screening Moderate Risk Diagnosis Psychosis Pertinent Medical Hx/Surgical Hx Epilepsy, HTN, Hyperlipidemia, DJD, Dementia Subjective Information Pt is a 59-year-old female admitted on 01/22 d/t aggressive behavior. Pt is eating an estimated 100% of meals Per Meal/Nutrition Activity Record. Dietary is currently providing an estimated 1700 kcals and 70 gm Pro to meet 100+% kcal and 100+% Pro needs. Anthropometrics HT: 51 WT: 120 LB (54.55 kg) BMI: 22.81 (normal) GI/ Skin Integrity GI: WNL, Soft, Flat, Non- tender BM: 01/23 x1 I/O: 1320/Not Noted Skin: WNL, Intact Cali: 21 Diet Order: Cardiac, chopped Estimated Energy Needs: ( Geriatric, CBW) 0244-7652 kcals (25-30 kcals/ kg) 55-65g Pro (1.0-1.2 g/kg) 3241-0646 ml (25-30 ml/kg) Current Diet Order/ Nutrition Support Cardiac, Chopped Pertinent Medications Lipitor, Colace, NaCl Tab Pertinent Labs 01/22: Ca 8.1, Na 121, HDL 38, GFR 73 Nutritional Hx/Data Height 1.55 m Height (Calculated Centimeters) 154.9 Current Weight (lbs) 54.431 kg Weight (Calculated Kilograms) 54.4 Weight (Calculated Grams) 48977.1 [place] Body Weight 105 LB (47.73 kg) % [place] Body Weight 114 Body Mass Index (BMI) 22.6 Weight Status Approriate GI Symptoms GI Symptoms None Last BM 01/23 x1 Skin Integrity/Comment: Skin: WNL, Intact Cali: 21 Current %PO Good (75-100%) Estimated Nutritional Goals BEE in Kcals: Using Current wt Calories/Kcals/Kg 25-30 Kcals Calculated 3099-5226 Protein: Using Current wt Protein g/k.0-1.2 Protein Calculated 55-65 Fluid: ml 9379-2869 ml (25-30 ml/kg) Nutritional Problem No current Nutrition Prob Problem No nutrition diagnosis at this time. Etiology N/A Signs/Symptoms: N/A Malnutrition Related to Morbid Obesity Malnutrition related to morbid obesity No Intervention/Recommendation Comments Continue Cardiac, chopped diet as tolerated. Expected Outcomes/Goals Expected Outcomes/Goals 1.PO intake to continue to meet >75% of estimated nutritional needs. 2.Monitor PO intake, wt, nutrition related labs, and skin integrity. 3.F/U as low risk in 7-10 days , 01/31-02/03.
[2020-02-12] MEDS: QUEtiapine Fumarate ER 200 MG, QUEtiapine Fumarate ER 100 MG PO SCH (20:45)
[2020-02-13] MEDS: Atorvastatin Calcium 10 MG TAB PO SCH (08:46)
[2020-02-13] MEDS: Benztropine 1 MG TAB PO SCH ×2 (08:46→16:53)
--- NOTE | 2020-02-13 10:16 | Progress Notes ---
DATE: SUBJECTIVE: Chart reviewed and the patient interviewed. Also discussed the patient's condition with the staff and reviewed records and labs. The patient is still anxious and is still in a depressed mood. The patient also is interacting minimally with others. The patient also is denying any intention to harm herself or others and is still waiting for her discharge eagerly. According to our case finisher, placement is not taking the patient at this time because of possible COVID virus. The patient's gait is steady. Vital signs are stable and no new labs available for review. TREATMENT PLAN: We will continue to monitor behavior and her condition. Also, continue to work on her ineffective coping and her mood swings. I will try to contact to [facility] to see if the patient can be discharged there. At the same time, we will continue to monitor behavior closely. ESTIMATED LENGTH OF STAY: 1 day. REASON FOR CONTINUED HOSPITAL STAY: Waiting for placement. JOB# [id number]
--- NOTE | 2020-02-13 20:21 | Internal Medicine Prog Note ---
Internal Medicine Subjective - Subjective Service Date: 02/13/20 Patient seen and examined:: without staff (she feels well) Patient is:: awake, verbal, in bed, talking, confused Per staff patient has:: no adverse event Internal Medicine Objective - Physical Exam Vitals and I&O: Vital Signs Temp 96.8 F 02/13/20 15:02 Pulse 124 02/13/20 15:02 Resp 20 02/13/20 15:02 BP 118/87 02/13/20 15:02 Pulse Ox 98 02/13/20 15:02 Intake & Output 02/13/20 02/13/20 02/14/20 06:59 18:59 06:59 Intake Total 360 Balance 360 Intake: Oral 360 Other: # Voids 3 3 # Bowel Movements 0 1 Active Medications: Current Medications Acetaminophen (Tylenol 650mg/20.3ml Suspension) 650 mg PO Q4H PRN PRN Reason: Pain (Mild 1-3) Stop: 04/07/20 19:19 Atenolol (Tenormin) 50 mg PO DAILY [facility] Stop: 04/08/20 08:59 Last Admin: 02/13/20 08:45 Dose: Not Given Atorvastatin Calcium (Lipitor) 10 mg PO DAILY [facility]; Protocol Stop: 04/08/20 08:59 Last Admin: 02/13/20 08:46 Dose: 10 mg Benztropine Mesylate (Cogentin) 1 mg PO BID [facility] Stop: 04/08/20 08:59 Last Admin: 02/13/20 16:53 Dose: 1 mg Haloperidol (Haldol) 2.5 mg PO BID [facility]; Protocol Stop: 04/08/20 08:59 Last Admin: 02/13/20 16:53 Dose: 2.5 mg Ibuprofen (Motrin) 400 mg PO Q6HR PRN PRN Reason: Pain (Moderate 4-6) Stop: 04/07/20 22:14 Lorazepam (Ativan) 0.5 mg PO BID [facility]; Protocol Stop: 04/08/20 08:59 Last Admin: 02/13/20 16:53 Dose: 0.5 mg Quetiapine Fumarate (Seroquel) 50 mg PO BID [facility]; Protocol Stop: 04/08/20 08:59 Last Admin: 02/13/20 16:53 Dose: 50 mg Quetiapine Fumarate 200 mg/ (Quetiapine Fumarate 100 mg) 300 mg PO HS [facility] Stop: 04/08/20 20:59 Last Admin: 02/12/20 20:45 Dose: 300 mg Zolpidem Tartrate (Ambien) 5 mg PO HS PRN PRN Reason: Insomnia Stop: 04/07/20 19:27 Last Admin: 02/12/20 20:45 Dose: 5 mg General: demented, thin HEENT: PERRLA, EOMI, anicteric sclerae, throat clear Neck: Supple, No JVD, No thyromegaly, +2 carotid pulse wo bruit, No LAD, + JVD Lungs: CTAB Cardiovascular: RRR, Normal S1, Normal S2 Abdomen: soft, non-tender, non-distended Extremities: clear Neurological: no change Internal Medicine Assmt/Plan - Assessment Assessment: 1.HTN 2.HYPERLIPIDEMIA. 3.DJD. 4.DEMENTIA - Plan Plan: CONTINUE ON CURRENT MEDICATION AND DIET Nutritional Asmnt/Malnutr-PDOC - Dietary Evaluation Malnutrition Findings (Please click <Entered> for more info): Nutritional Asmnt/Malnutrition Start: 01/25/20 13: 06 Text: Status: Complete Freq: Protocol: Document 01/25/20 13:06 JORGE (Rec: 01/25/20 13:09 JORGE [id number]) Nutritional Asmnt/Malnutrition Patient General Information Nutritional Screening Moderate Risk Diagnosis Psychosis Pertinent Medical Hx/Surgical Hx Epilepsy, HTN, Hyperlipidemia, DJD, Dementia Subjective Information Pt is a 59-year-old female admitted on 01/22 d/t aggressive behavior. Pt is eating an estimated 100% of meals Per Meal/Nutrition Activity Record. Dietary is currently providing an estimated 1700 kcals and 70 gm Pro to meet 100+% kcal and 100+% Pro needs. Anthropometrics HT: 51 WT: 120 LB (54.55 kg) BMI: 22.81 (normal) GI/ Skin Integrity GI: WNL, Soft, Flat, Non- tender BM: 01/23 x1 I/O: 1320/Not Noted Skin: WNL, Intact Cali: 21 Diet Order: Cardiac, chopped Estimated Energy Needs: ( Geriatric, CBW) 1332-5072 kcals (25-30 kcals/ kg) 55-65g Pro (1.0-1.2 g/kg) 5419-2760 ml (25-30 ml/kg) Current Diet Order/ Nutrition Support Cardiac, Chopped Pertinent Medications Lipitor, Colace, NaCl Tab Pertinent Labs 01/22: Ca 8.1, Na 121, HDL 38, GFR 73 Nutritional Hx/Data Height 1.55 m Height (Calculated Centimeters) 154.9 Current Weight (lbs) 54.431 kg Weight (Calculated Kilograms) 54.4 Weight (Calculated Grams) 51689.1 [place] Body Weight 105 LB (47.73 kg) % [place] Body Weight 114 Body Mass Index (BMI) 22.6 Weight Status Approriate GI Symptoms GI Symptoms None Last BM 01/23 x1 Skin Integrity/Comment: Skin: WNL, Intact Cali: 21 Current %PO Good (75-100%) Estimated Nutritional Goals BEE in Kcals: Using Current wt Calories/Kcals/Kg 25-30 Kcals Calculated 3368-3022 Protein: Using Current wt Protein g/k.0-1.2 Protein Calculated 55-65 Fluid: ml 8425-7389 ml (25-30 ml/kg) Nutritional Problem No current Nutrition Prob Problem No nutrition diagnosis at this time. Etiology N/A Signs/Symptoms: N/A Malnutrition Related to Morbid Obesity Malnutrition related to morbid obesity No Intervention/Recommendation Comments Continue Cardiac, chopped diet as tolerated. Expected Outcomes/Goals Expected Outcomes/Goals 1.PO intake to continue to meet >75% of estimated nutritional needs. 2.Monitor PO intake, wt, nutrition related labs, and skin integrity. 3.F/U as low risk in 7-10 days , 01/31-02/03.
[2020-02-13] MEDS: QUEtiapine Fumarate ER 200 MG, QUEtiapine Fumarate ER 100 MG PO SCH (20:36)
[2020-02-14] MEDS: Benztropine 1 MG TAB PO SCH ×2 (08:16→16:39)
[2020-02-14] MEDS: Atorvastatin Calcium 10 MG TAB PO SCH (08:16)
--- NOTE | 2020-02-14 19:46 | Internal Medicine Prog Note ---
Internal Medicine Subjective - Subjective Service Date: 02/14/20 Patient seen and examined:: without staff (SHE IS DOING WELL) Patient is:: awake, verbal, in bed, talking, confused Per staff patient has:: no adverse event Internal Medicine Objective - Physical Exam Vitals and I&O: Vital Signs Temp 97.6 F 02/14/20 14:00 Pulse 95 02/14/20 14:00 Resp 19 02/14/20 14:00 BP 110/77 02/14/20 14:00 Pulse Ox 100 02/14/20 14:00 Intake & Output 02/14/20 02/14/20 02/15/20 06:59 18:59 06:59 Intake Total 240 1200 Balance 240 1200 Intake: Oral 240 1200 Other: # Voids 2 # Bowel Movements 0 1 Active Medications: Current Medications Acetaminophen (Tylenol 650mg/20.3ml Suspension) 650 mg PO Q4H PRN PRN Reason: Pain (Mild 1-3) Stop: 04/07/20 19:19 Atenolol (Tenormin) 50 mg PO DAILY [facility] Stop: 04/08/20 08:59 Last Admin: 02/14/20 08:16 Dose: Not Given Atorvastatin Calcium (Lipitor) 10 mg PO DAILY [facility]; Protocol Stop: 04/08/20 08:59 Last Admin: 02/14/20 08:16 Dose: 10 mg Benztropine Mesylate (Cogentin) 1 mg PO BID [facility] Stop: 04/08/20 08:59 Last Admin: 02/14/20 16:39 Dose: 1 mg Haloperidol (Haldol) 2.5 mg PO BID [facility]; Protocol Stop: 04/08/20 08:59 Last Admin: 02/14/20 16:38 Dose: 2.5 mg Ibuprofen (Motrin) 400 mg PO Q6HR PRN PRN Reason: Pain (Moderate 4-6) Stop: 04/07/20 22:14 Lorazepam (Ativan) 0.5 mg PO BID [facility]; Protocol Stop: 04/08/20 08:59 Last Admin: 02/14/20 16:38 Dose: 0.5 mg Quetiapine Fumarate (Seroquel) 50 mg PO BID [facility]; Protocol Stop: 04/08/20 08:59 Last Admin: 02/14/20 16:39 Dose: 50 mg Quetiapine Fumarate 200 mg/ (Quetiapine Fumarate 100 mg) 300 mg PO HS MANUELA Stop: 04/08/20 20:59 Last Admin: 02/13/20 20:36 Dose: 300 mg Zolpidem Tartrate (Ambien) 5 mg PO HS PRN PRN Reason: Insomnia Stop: 04/07/20 19:27 Last Admin: 02/13/20 20:37 Dose: 5 mg General: demented, thin HEENT: PERRLA, EOMI, anicteric sclerae, throat clear Neck: Supple, No JVD, No thyromegaly, +2 carotid pulse wo bruit, No LAD, + JVD Lungs: CTAB Cardiovascular: RRR, Normal S1, Normal S2 Abdomen: soft, non-tender, non-distended Extremities: clear Neurological: no change Internal Medicine Assmt/Plan - Assessment Assessment: 1.HTN 2.HYPERLIPIDEMIA. 3.DJD. 4.DEMENTIA - Plan Plan: CONTINUE ON CURRENT MEDICATION AND DIET Nutritional Asmnt/Malnutr-PDOC - Dietary Evaluation Malnutrition Findings (Please click <Entered> for more info): Nutritional Asmnt/Malnutrition Start: 01/25/20 13: 06 Text: Status: Complete Freq: Protocol: Document 01/25/20 13:06 JORGE (Rec: 01/25/20 13:09 JORGE [id number]) Nutritional Asmnt/Malnutrition Patient General Information Nutritional Screening Moderate Risk Diagnosis Psychosis Pertinent Medical Hx/Surgical Hx Epilepsy, HTN, Hyperlipidemia, DJD, Dementia Subjective Information Pt is a 59-year-old female admitted on 01/22 d/t aggressive behavior. Pt is eating an estimated 100% of meals Per Meal/Nutrition Activity Record. Dietary is currently providing an estimated 1700 kcals and 70 gm Pro to meet 100+% kcal and 100+% Pro needs. Anthropometrics HT: 51 WT: 120 LB (54.55 kg) BMI: 22.81 (normal) GI/ Skin Integrity GI: WNL, Soft, Flat, Non- tender BM: 01/23 x1 I/O: 1320/Not Noted Skin: WNL, Intact Cali: 21 Diet Order: Cardiac, chopped Estimated Energy Needs: ( Geriatric, CBW) 7414-1062 kcals (25-30 kcals/ kg) 55-65g Pro (1.0-1.2 g/kg) 4419-2541 ml (25-30 ml/kg) Current Diet Order/ Nutrition Support Cardiac, Chopped Pertinent Medications Lipitor, Colace, NaCl Tab Pertinent Labs 01/22: Ca 8.1, Na 121, HDL 38, GFR 73 Nutritional Hx/Data Height 1.55 m Height (Calculated Centimeters) 154.9 Current Weight (lbs) 54.431 kg Weight (Calculated Kilograms) 54.4 Weight (Calculated Grams) 70864.1 [place] Body Weight 105 LB (47.73 kg) % [place] Body Weight 114 Body Mass Index (BMI) 22.6 Weight Status Approriate GI Symptoms GI Symptoms None Last BM 01/23 x1 Skin Integrity/Comment: Skin: WNL, Intact Cali: 21 Current %PO Good (75-100%) Estimated Nutritional Goals BEE in Kcals: Using Current wt Calories/Kcals/Kg 25-30 Kcals Calculated 4642-4362 Protein: Using Current wt Protein g/k.0-1.2 Protein Calculated 55-65 Fluid: ml 3920-6228 ml (25-30 ml/kg) Nutritional Problem No current Nutrition Prob Problem No nutrition diagnosis at this time. Etiology N/A Signs/Symptoms: N/A Malnutrition Related to Morbid Obesity Malnutrition related to morbid obesity No Intervention/Recommendation Comments Continue Cardiac, chopped diet as tolerated. Expected Outcomes/Goals Expected Outcomes/Goals 1.PO intake to continue to meet >75% of estimated nutritional needs. 2.Monitor PO intake, wt, nutrition related labs, and skin integrity. 3.F/U as low risk in 7-10 days , 01/31-02/03.
[2020-02-14] MEDS: QUEtiapine Fumarate ER 200 MG, QUEtiapine Fumarate ER 100 MG PO SCH (20:30)
[2020-02-15] MEDS: Atorvastatin Calcium 10 MG TAB PO SCH (08:27)
[2020-02-15] MEDS: Benztropine 1 MG TAB PO SCH (08:27)
--- NOTE | 2020-02-16 16:18 | Progress Notes ---
DATE: 02/14/2020 SUBJECTIVE: Chart was reviewed and the patient interviewed. Also discussed the patient's condition with the staff and reviewed records and labs. The patient is still cooperative and calm. She is interacting appropriately with peers and with others. The patient denies any hallucinations or delusions and she denies any thoughts of suicide or homicide. The patient also is asking about her discharge and still waiting for [facility] to return there. Gait is steady. Vital signs are stable and no new labs available for review. MENTAL STATUS EXAMINATION: Calm. Cooperative. Denies hallucinations or delusions and denies suicide or homicide. ASSESSMENT: The patient is calm and waiting for her discharge. TREATMENT PLAN: Planning to discharge the patient today and follow up in [facility]. JOB# [id number]
== END 2020-02-15 10:55 | DRG 885 ==
LOC: GERO 21:55 → UNDODISIN 02-07 11:37
PROVIDERS: ADMIT Psychiatry & Neurology Psychiatry; ATTEND Psychiatry & Neurology Psychiatry
DX: F25.9 Schizoaffective disorder, unspecified (principal); F03.90 Unspecified dementia, unspecified severity, without behavioral disturbance, psychotic disturbance, mood disturbance, and anxiety; I10 Essential (primary) hypertension; E78.5 Hyperlipidemia, unspecified; M19.90 Unspecified osteoarthritis, unspecified site; F29 Unspecified psychosis not due to a substance or known physiological condition; G40.909 Epilepsy, unspecified, not intractable, without status epilepticus; Z79.899 Other long term (current) drug therapy; Z03.818 Encounter for observation for suspected exposure to other biological agents ruled out; Z88.5 Allergy status to narcotic agent; Z88.0 Allergy status to penicillin; Z88.8 Allergy status to other drugs, medicaments and biological substances
CPT/HCPCS: 83036-90; 90899; G0410; Z7610